=== PATIENT | male | born 1990 | race Caucasian/White ===

== ENCOUNTER 2018-01-17 07:49 | Emergency (ER) | payer SELFPAY ==
[2018-01-17 07:56] VITALS: BP 127/81; PULSE 92; RESP 16; TEMP 37; O2SAT 97
[2018-01-17] MEDS: Lidocaine/Epinephri/Tetracaine Topical Gel 3 ML TP (08:20)
--- NOTE | 2018-01-17 08:20 | ED.GENADUL_ITS ---
Discharge Plan Disposition Patient Disposition: HOME Discharge Details Chief Complaint: Cellulitis Clinical Impression: Abscess of forearm, right, Cellulitis of forearm, right Primary Care Provider: None,None ED Provider: Austin Self Home Meds and New Rx's Prescriptions: New cephalexin [Keflex] 500 mg capsule 500 mg PO QID Qty: 39 RF: 0 sulfamethoxazole-trimethoprim [Bactrim DS] 800-160 mg tablet 1 tab PO Q12H Qty: 19 RF: 0 Discontinued ibuprofen 200 MG capsule 1,200 mg PO ONCE RF: 0 Discharge Instructions Instructions: Cellulitis (ED), Abscess (ED) Additional Instructions: Please take the full course of both antibiotics as prescribed. Return to the emergency department on 01/19 or Saturday 01/20 for reassessment. Return to the ER for any worsening or new concerning symptoms. Medical Decision Making 27-year-old male with history of prior abscess here with right forearm abscess and cellulitis with localized swelling. Neurovascular intact distally. Compartments soft and no signs of compartment syndrome. Abscess anesthetized with LET and incision and drainage performed. Abscess irrigated with sterile saline. Wound cultures taken. Plan to treat with Bactrim and Keflex for 10 days. Patient does not have a primary care physician. I advised that he return to the emergency department for reassessment in 2-3 days. Disposition decision was made weighing the risks and benefits of hospitalization versus outpatient treatment, the risk for further decompensation , and the patient's wishes. The patient was stable and requested discharge. Prior to discharge, my usual and customary return precautions were reviewed with the patient - this included follow-up instructions and reason to return to the emergency department if condition worsens, does not improve as expected, or other new concerns arise. HPI General Mode of arrival: ambulatory . Date/Time Provider Initiated Documentation: 01/17/18 08:18 . Limitations to Documentation: no limitations . Information obtained by: patient . HPI Narrative: 27-year-old male presents with chief complaint of infection right forearm. Patient notes that he noticed what he thought was a pimple right forearm that started 3-4 days ago. Area has become more swollen and painful. Swelling is now extending proximally from the area of infection. He also noticed some redness medial forearm. No associated fever. His symptoms are progressive and now moderate to severe. He notes no pain when he flexes or extends his wrist or elbow. No numbness. Patient denies IVDU or injection. He has had an abscess of his other forearm in the remote past. Related Data Home Medications Medication Instructions Recorded Confirmed cephalexin [Keflex] 500 mg PO QID #39 cap 01/17/18 sulfamethoxazole-trimethoprim 1 tab PO Q12H #19 tab 01/17/18 [Bactrim DS] Previous Rx's Medication Instructions Recorded cephalexin [Keflex] 500 mg PO QID #39 cap 01/17/18 sulfamethoxazole-trimethoprim 1 tab PO Q12H #19 tab 01/17/18 [Bactrim DS] Allergies Allergy/AdvReac Type Severity Reaction Status Date / Time nickel Allergy Mild Skin Rash Unverified 01/17/18 08:00 General Stated Complaint: Cellulitis JOSE: 4 Review of Systems ENT Reports nasal congestion Respiratory Reports cough (1 week nonprod) Musculoskeletal Reports as per HPI Integumentary/Breasts Reports as per HPI PFS Social History Smoking/Tobacco Use Status: Current every day Exam Const General: cooperative and no acute distress [facility] Head: normocephalic and atraumatic Mouth: moist mucous membranes Eyes Conjunctivae: normal conjunctivae Sclera: normal sclerae Resp Auscultation: clear to auscultation bilaterally, no rales, no rhonchi and no wheezes Cardio Jugular venous pressure: no JVD Rate: regular rate and not tachycardic Rhythm: regular rhythm Pulses: radial pulses present on the right Skin Rashes: rashes noted (3cm abscess rt distal posterior medial forearm with fluctuance and erythema, some tracking anterior forearm) Neuro General: alert, awake, oriented x3 and tone normal Extrem General: no edema Right upper extremity: edema (rt forearm) and elbow/forearm Details: tenderness (about abscess ), normal ROM, distal pulses intact and other (compartment soft) Psych Appearance: grossly normal Mental Status: mental status grossly normal Speech and Movement: speech and movement normal Course Vital Signs Temperature 37 C 01/17/18 07:56 Pulse 92 H 01/17/18 07:56 Respiratory Rate 16 01/17/18 07:56 Blood Pressure 127/81 01/17/18 07:56 Pulse Oximetry 97 01/17/18 07:56 Temperature 37 C 01/17/18 07:56 Temperature Source Skin 01/17/18 07:56 Pulse 92 H 01/17/18 07:56 Respiratory Rate 16 01/17/18 07:56 Respiratory Effort Non-Labored 01/17/18 07:56 Blood Pressure 127/81 01/17/18 07:56 Blood Pressure Position Sitting 01/17/18 07:56 Pulse Oximetry 97 01/17/18 07:56 Oxygen Delivery Method Room Air 01/17/18 07:56 Oxygen Flow Rate 0 01/17/18 07:56 Pain Level 8 01/17/18 07:56 Procedures Abscess I/D Site: Upper Extremity (rt forearm) Side (if applicable): Right Local Anesthetic: Other Anesthetic (LET topical) Technique: Incised with #11 Blade Amount of fluid expressed (mL): 6 Irrigation: Yes Packing used?: None Complications: Other (none)
[2018-01-17] MEDS: Doxycycline Hyclate 100 MG CAP PO (08:25)
[2018-01-17] MEDS: Sulfameth/Trimeth DS TAB 1 TAB PO (08:26)
[2018-01-17] MEDS: Cephalexin 500 MG CAP PO (09:20)
== END 2018-01-17 09:29 | disposition home or self-care (01) ==
LOC: ER 09:38
PROVIDERS: Emergency Provider Student in an Organized Health Care Education/Training Program
DX: L02.413 Cutaneous abscess of right upper limb (principal); L03.113 Cellulitis of right upper limb; B95.62 Methicillin resistant Staphylococcus aureus infection as the cause of diseases classified elsewhere
CPT/HCPCS: 10060; 87077; 87070; 87186; 87205

== ENCOUNTER 2018-05-31 16:32 | Emergency (ER) | payer SELFPAY ==
[2018-05-31 16:36] VITALS: BP 143/76; PULSE 77; RESP 20; TEMP 36.5; O2SAT 99
--- NOTE | 2018-05-31 17:12 | W.ED.GENAD ---
Discharge Plan Disposition Patient Disposition: HOME Condition: Good Discharge Details Chief Complaint: Laceration Clinical Impression: Laceration of finger of left hand Primary Care Provider: None,None ED Provider: Mathew Roman Home Meds and New Rx's Prescriptions: No Action No Known Home Meds RF: 0 Discharge Instructions Instructions: Finger Laceration (ED) Additional Instructions: Keep wound clean and dry but do not soak the wound. Keep covered with antibiotic ointment and Band-Aid. Return here in 10 days for suture removal. Return sooner if signs of infection Referrals: [facility] [Provider Group] Medical Decision Making Relatively small and superficial laceration to the left middle finger. Neurovascularly intact and tendons intact. Local anesthetic used. Placed with good approximation of skin. Patient to return in 10 days for suture removal. Return sooner for signs of infection. HPI General Mode of arrival: ambulatory. Date/Time Provider Initiated Documentation: 05/31/18 16:42. Limitations to Documentation: no limitations. Information obtained by: patient. HPI Narrative: Patient presents with laceration to the back of the left middle finger which occurred while he was washing dishes and a glass broke. He denies any other injury. He denies any change in range of motion of the finger or hand. He denies any numbness. Bleeding is controlled. Tetanus is up-to-date. Related Data Home Medications Medication Instructions Recorded Confirmed Unknown [No Known Home Meds] 05/31/18 05/31/18 Allergies Allergy/AdvReac Type Severity Reaction Status Date / Time nickel Allergy Mild Skin Rash Unverified 05/31/18 16:39 General Stated Complaint: Laceration JOSE: 3 Review of Systems Constitutional Denies weakness Musculoskeletal Denies joint swelling, Denies limited range of motion and Denies tingling Integumentary/Breasts Reports wounds Neurologic Denies focal weakness, Denies sensory deficit, Denies tingling, Denies paresthesias and Denies weakness [facility] Social History Smoking/Tobacco Use Status: Current every day Tobacco Type: e-cigarettes Alcohol Intake: current Alcohol Intake frequency: a few times a week Drug use: Daily Substance use type: marijuana Do you feel safe at home: Yes Do you feel safe in your relationship?: Yes Exam Narrative Exam Narrative: Well-developed well-nourished male in no acute distress. Left middle finger with a 0.5 cm lac to the dorsum of the finger at the base. Lac is through the dermis. Tendon is intact. There is no weakness to the extensor tendon mechanism. Sensory is intact distal. Cap refill is normal. Course Vital Signs Temperature 97.7 F 05/31/18 16:36 Pulse 77 05/31/18 16:36 Respiratory Rate 20 05/31/18 16:36 Blood Pressure 143/76 H 05/31/18 16:36 Pulse Oximetry 99 05/31/18 16:36 Temperature 97.7 F 05/31/18 16:36 Temperature Source Temporal Artery Scan 05/31/18 16:36 Pulse 77 05/31/18 16:36 Respiratory Rate 20 05/31/18 16:36 Respiratory Effort Non-Labored 05/31/18 16:36 Blood Pressure 143/76 H 05/31/18 16:36 Pulse Oximetry 99 05/31/18 16:36 Oxygen Delivery Method Room Air 05/31/18 16:36 Oxygen Flow Rate 0 05/31/18 16:36 Pain Level 0 05/31/18 16:36 Procedures Laceration Laceration 1: Site: hand Side (If applicable): left Size (cm): 0.5 Description: linear Depth: simple, single layer Local Anesthetic: Lidocaine 1% Pre-repair: wound explored, irrigated extensively and deep structures intact Skin layer closed with: other (Prolene) Size (cm): 5-0 Number of sutures: 2 Technique: simple, interrupted
--- NOTE | 2018-05-31 17:17 | ED.GENADUL_ITS ---
Discharge Plan Disposition Patient Disposition: HOME Condition: Good Discharge Details Chief Complaint: Laceration Clinical Impression: Laceration of finger of left hand Primary Care Provider: None,None ED Provider: Mathew Roman Home Meds and New Rx's Prescriptions: No Action No Known Home Meds RF: 0 Discharge Instructions Instructions: Finger Laceration (ED) Additional Instructions: Keep wound clean and dry but do not soak the wound. Keep covered with antibiotic ointment and Band-Aid. Return here in 10 days for suture removal. Return sooner if signs of infection Referrals: [facility] [Provider Group] Medical Decision Making Relatively small and superficial laceration to the left middle finger. Neurovascularly intact and tendons intact. Local anesthetic used. Placed with good approximation of skin. Patient to return in 10 days for suture removal. Return sooner for signs of infection. HPI General Mode of arrival: ambulatory . Date/Time Provider Initiated Documentation: 05/31/18 16:42 . Limitations to Documentation: no limitations . Information obtained by: patient . HPI Narrative: Patient presents with laceration to the back of the left middle finger which occurred while he was washing dishes and a glass broke. He denies any other injury. He denies any change in range of motion of the finger or hand. He denies any numbness. Bleeding is controlled. Tetanus is up-to-date. Related Data Home Medications Medication Instructions Recorded Confirmed Unknown [No Known Home Meds] 05/31/18 05/31/18 Allergies Allergy/AdvReac Type Severity Reaction Status Date / Time nickel Allergy Mild Skin Rash Unverified 05/31/18 16:39 General Stated Complaint: Laceration JOSE: 3 Review of Systems Constitutional Denies weakness Musculoskeletal Denies joint swelling, Denies limited range of motion and Denies tingling Integumentary/Breasts Reports wounds Neurologic Denies focal weakness, Denies sensory deficit, Denies tingling, Denies paresthesias and Denies weakness [facility] Social History Smoking/Tobacco Use Status: Current every day Tobacco Type: e-cigarettes Alcohol Intake: current Alcohol Intake frequency: a few times a week Drug use: Daily Substance use type: marijuana Do you feel safe at home: Yes Do you feel safe in your relationship?: Yes Exam Narrative Exam Narrative: Well-developed well-nourished male in no acute distress. Left middle finger with a 0.5 cm lac to the dorsum of the finger at the base. Lac is through the dermis. Tendon is intact. There is no weakness to the extensor tendon mechanism. Sensory is intact distal. Cap refill is normal. Course Vital Signs Temperature 97.7 F 05/31/18 16:36 Pulse 77 05/31/18 16:36 Respiratory Rate 20 05/31/18 16:36 Blood Pressure 143/76 H 05/31/18 16:36 Pulse Oximetry 99 05/31/18 16:36 Temperature 97.7 F 05/31/18 16:36 Temperature Source Temporal Artery Scan 05/31/18 16:36 Pulse 77 05/31/18 16:36 Respiratory Rate 20 05/31/18 16:36 Respiratory Effort Non-Labored 05/31/18 16:36 Blood Pressure 143/76 H 05/31/18 16:36 Pulse Oximetry 99 05/31/18 16:36 Oxygen Delivery Method Room Air 05/31/18 16:36 Oxygen Flow Rate 0 05/31/18 16:36 Pain Level 0 05/31/18 16:36 Procedures Laceration Laceration 1: Site: hand Side (If applicable): left Size (cm): 0.5 Description: linear Depth: simple, single layer Local Anesthetic: Lidocaine 1% Pre-repair: wound explored, irrigated extensively and deep structures intact Skin layer closed with: other (Prolene) Size (cm): 5-0 Number of sutures: 2 Technique: simple, interrupted
== END 2018-05-31 17:10 | disposition home or self-care (01) ==
PROVIDERS: Emergency Provider Emergency Medicine
DX: S61.213A Laceration without foreign body of left middle finger without damage to nail, initial encounter (principal); W25.XXXA Contact with sharp glass, initial encounter
CPT/HCPCS: 12001

== ENCOUNTER 2018-06-03 01:46 | Emergency (ER) | payer SELFPAY ==
[2018-06-03 01:47] VITALS: BP 148/85; PULSE 114; RESP 16; TEMP 37.2; O2SAT 98
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
[2018-06-03 02:03] VITALS: BP 148/85; PULSE 114; RESP 16; TEMP 37.2; O2SAT 98
== END 2018-06-03 02:03 | disposition home or self-care (01) ==
LOC: ER 02:10
PROVIDERS: Emergency Provider Emergency Medicine
DX: S01.01XA Laceration without foreign body of scalp, initial encounter (principal); S00.83XA Contusion of other part of head, initial encounter; S00.03XA Contusion of scalp, initial encounter; S10.83XA Contusion of other specified part of neck, initial encounter; X99.0XXA Assault by sharp glass, initial encounter; Y04.0XXA Assault by unarmed brawl or fight, initial encounter
CPT/HCPCS: 12001; 99282

== ENCOUNTER 2018-06-09 14:53 | Emergency (ER) | payer SELFPAY ==
[2018-06-09 14:56] VITALS: BP 132/68; PULSE 16; TEMP 37; O2SAT 98
--- NOTE | 2018-06-09 15:02 | W.ED.GENAD ---
Discharge Plan Disposition Patient Disposition: HOME Condition: Stable Discharge Details Chief Complaint: SutureRem Clinical Impression: Visit for suture removal Primary Care Provider: None,None ED Provider: Jey Green Home Meds and New Rx's Prescriptions: No Action No Known Home Meds RF: 0 Discharge Instructions Instructions: Stitches Removal (ED) Medical Decision Making Patient here to have his 2 eros removed from scalp and 2 stitches removed from left middle finger placed a week or so ago per pt. Has no redness, signiicant pain or d/c from the wound to suggest infection. wounds appear well healed, will have nursing remove eros and sutures Differential Diagnosis suture and staple removal HPI General Mode of arrival: ambulatory. Date/Time Provider Initiated Documentation: 06/09/18 15:02. Limitations to Documentation: no limitations. Information obtained by: patient. History of Present Illness 27 year old M presents to the emergency department with the chief complaint of suture and staple removal, described as mild, and is localized to the head, left and upper extremity. Patient reports no radiation. No relieving factors improve symptom(s), No exacerbating factors reported . Patient did receive the following treatments prior to arrival, none Related Data Home Medications Medication Instructions Recorded Confirmed Unknown [No Known Home Meds] 05/31/18 06/03/18 Allergies Allergy/AdvReac Type Severity Reaction Status Date / Time nickel Allergy Mild Skin Rash Unverified 06/03/18 01:53 General Stated Complaint: SutureRem JOSE: 5 Review of Systems Review of Systems All systems reviewed & are unremarkable except as noted in HPI and below Constitutional Denies chills, Denies fever(s) and Denies weakness Eyes Denies loss of vision ENT Denies change in voice Cardiovascular Denies chest pain and Denies dyspnea Respiratory Denies cough and Denies dyspnea Gastrointestinal Denies abdominal pain, Denies nausea and Denies vomiting Musculoskeletal Denies joint swelling Neurologic Denies loss of vision and Denies weakness [facility] Social History Smoking/Tobacco Use Status: Current every day Tobacco Type: e-cigarettes Alcohol Intake: current Alcohol Intake frequency: a few times a week Drug use: Daily Substance use type: marijuana Details: drink on the weekends and smoke a pack a week but uses vapor device as well. Do you feel safe at home: Yes Do you feel safe in your relationship?: Yes Exam Const General: no acute distress Orientation: alert HENMT Head: normal to inspection Ears: external ears normal General nose exam: external nose normal Mouth: moist mucous membranes Eyes General: appearance normal, both eyes and all related structures Neck Neck: normal visual inspection Resp Effort & Inspection: normal respiratory effort and able to speak in complete sentences Cardio Rate: regular rate Skin General skin exam: elasticity normal Neuro General: alert and oriented x3 Extrem General: normal to inspection Psych Mental Status: mental status grossly normal Course Vital Signs Temperature 37.0 C 06/09/18 14:56 Pulse 16 L 06/09/18 14:56 Blood Pressure 132/68 06/09/18 14:56 Pulse Oximetry 98 06/09/18 14:56 Temperature 37.0 C 06/09/18 14:56 Temperature Source Tympanic 06/09/18 14:56 Pulse 16 L 06/09/18 14:56 Blood Pressure 132/68 06/09/18 14:56 Blood Pressure Position Sitting 06/09/18 14:56 Pulse Oximetry 98 06/09/18 14:56 Pain Level 0 06/09/18 14:56
[2018-06-09 15:11] VITALS: BP 132/68; PULSE 16; RESP 16; TEMP 37; O2SAT 98
== END 2018-06-09 15:15 | disposition home or self-care (01) ==
LOC: ER 15:16
PROVIDERS: Emergency Provider Emergency Medicine
DX: S01.01XD Laceration without foreign body of scalp, subsequent encounter (principal); S61.213D Laceration without foreign body of left middle finger without damage to nail, subsequent encounter; X58.XXXD Exposure to other specified factors, subsequent encounter; Z48.02 Encounter for removal of sutures

== ENCOUNTER 2018-09-29 13:54 | Emergency (ER) | payer SELFPAY ==
[2018-09-29 13:57] VITALS: BP 164/88; PULSE 103; RESP 16; TEMP 36.6
--- NOTE | 2018-09-29 14:02 | W.ED.GENAD ---
Discharge Plan Disposition Patient Disposition: HOME Condition: Fair Discharge Details Chief Complaint: Laceration Clinical Impression: Fracture of finger, distal phalanx, open, Finger laceration Primary Care Provider: None,None ED Provider: Betty Salmon Home Meds and New Rx's Prescriptions: New cephalexin [Keflex] 500 mg capsule 500 mg PO QID Qty: 20 RF: 0 Discharge Instructions Instructions: Finger Fracture (ED), Finger Laceration (ED) Additional Instructions: Keep wound clean, dry, covered. Please keep current dressing on for the next 24 hours, after that may cover with bandaid and splint. Please continue with splint until evaluated by orthopedics. Call orthopedics to schedule follow up appointment. Sutures may come out in 10 days, please return for suture removal. Tylenol and/or Ibuprofen as needed for discomfort. Elevate. Monitor wound for signs of infection. If you develop fevers/chills, increased pain, discharge, redness, warmth or other new/worsening symptoms please seek care urgently once again. Please take antibiotics as prescribed. 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 Reprots that he was cutting wood with a table saw when he caught the distal radial side of his right index finger. Patient suffered an irrugular flap laceration involving the distal corner of the nail. Has poor sensation to the flap. Good capillary refill. Reports he received tetanus last 2 years ago while incarcerated. Denies other injury at the time of the incident. After evaluating the patient, risks/benefits of digital block was discussed, patient voiced understanding and block was preformed. XR reviewed showing distal tuft defect consistent with area of laceration. Patietn will be treated for open fracture. Discussed risks/benefits of closure, he voices understanding and wishes to proceed. Digital block worked well. Please see procedure note. Wound was copiously irrigated, no FB or debris noted. Tournequet used to hemostasis. Section of nail on the flap was removed for better visualizion and alignment of tissues. Wound edges were reappoximated. He does have a small flap of tissue that is concerning regarding viability, discussed this with patient and possible outcomes with this. Patient tolerated procedure well and a bulky dressing was applied. Discussed wound care in depth. He will monitor for signs of infeciton. He will f/u with orthopedics regarding open fx. Patient placed on Keflex. He was given strict return precautions, will return for suture removal. All of his quiestons and concerns were addressed, he is in agreement with this plan. HPI General Mode of arrival: ambulatory. Date/Time Provider Initiated Documentation: 09/29/18 14:02. Limitations to Documentation: no limitations. Information obtained by: patient and RN notes reviewed. History of Present Illness 28 year old M presents to the emergency department with the chief complaint of right finger laceration, described as severe, Quality is described as burning, and is localized to the right and upper extremity. Patient reports no radiation. Patient started experiencing this minute(s) and it has been constant. No relieving factors improve symptom(s), No exacerbating factors reported . Patient notes no other symptoms.. Patient did receive the following treatments prior to arrival, none Related Data Home Medications Medication Instructions Recorded Confirmed cephalexin [Keflex] 500 mg PO QID #20 cap 09/29/18 Previous Rx's Medication Instructions Recorded cephalexin [Keflex] 500 mg PO QID #20 cap 09/29/18 Allergies Allergy/AdvReac Type Severity Reaction Status Date / Time nickel Allergy Mild Skin Rash Unverified 06/03/18 01:53 General Stated Complaint: Laceration JOSE: 3 Review of Systems Constitutional Reports as per HPI, Denies chills and Denies fever(s) Musculoskeletal Reports as per HPI Integumentary/Breasts Reports as per HPI Neurologic Reports as per HPI and Reports sensory deficit (deficit distal to laceration) [facility] Social History Smoking/Tobacco Use Status: Current every day Tobacco Type: e-cigarettes Alcohol Intake: current Alcohol Intake frequency: a few times a week Drug use: Daily Substance use type: marijuana Details: drink on the weekends and smoke a pack a week but uses vapor device as well. Do you feel safe at home: Yes Do you feel safe in your relationship?: Yes Exam Const General: cooperative, healthy appearing, comfortable, no acute distress and well developed Nutritional Appearance: average body habitus and well nourished Orientation: alert and awake Resp Effort & Inspection: normal respiratory effort, able to speak in complete sentences and no respiratory distress Cardio Rate: regular rate Rhythm: regular rhythm Skin Trauma: laceration (3cm irregular deep laceration radial side right index, involves corner nail) Neuro General: alert and awake Cognition: normal cognition Speech: speech normal Gait: normal gait Sensory Exam: sensory deficits noted (no sensation distal to laceration) Extrem Right upper extremity: full ROM, normal capillary refill, no joint enlargement and hand Details: normal capillary refill and neuromotor exam normal; abnormal to inspection and neurosensory exam abnormal (no sensation in the distal flap); abnormal to inspection (flap laceration as above) and no edema Hand/finger images: 1. 2. Psych Appearance: grossly normal and well kempt Mental Status: mental status grossly normal Speech and Movement: speech and movement normal Course Vital Signs Temperature 36.6 C 09/29/18 13:57 Pulse 103 H 09/29/18 13:57 Respiratory Rate 16 09/29/18 13:57 Blood Pressure 164/88 H 09/29/18 13:57 Temperature 36.6 C 09/29/18 13:57 Temperature Source Temporal Artery Scan 09/29/18 13:57 Pulse 103 H 09/29/18 13:57 Respiratory Rate 16 09/29/18 13:57 Respiratory Effort Non-Labored 09/29/18 13:58 Blood Pressure 164/88 H 09/29/18 13:57 Blood Pressure Position Supine 09/29/18 13:57 Oxygen Delivery Method Room Air 09/29/18 13:57 Oxygen Flow Rate 0 09/29/18 13:57 Pain Level 8 09/29/18 13:58 Procedures Laceration Laceration 1: Site: hand Side (If applicable): right Size (cm): 3 Depth: involves muscle layer (into distal phalanx) Local Anesthetic: Lidocaine 1% Amount of anesthesia used (mL): 5 Pre-repair: wound explored, irrigated extensively, extensive debridement and wound margins revised Skin layer closed with: nylon Size (cm): 6-0 Number of sutures: 11
--- NOTE | 2018-09-29 14:10 | DI.RAD_ITS ---
SYMPTOMS/DIAGNOSIS: TABLE SAW INJURY, DISTAL PHALANX RIGHT INDEX FINGER: Three views were obtained and show soft tissue defect at the tip of the index finger with associated fracture/bone loss of the tuft of the distal phalanx. No additional fractures seen.
[2018-09-29] MEDS: Ibuprofen 600 MG TAB PO (14:20)
[2018-09-29] MEDS: Acetaminophen 500 MG TAB (14:55)
[2018-09-29] MEDS: Cephalexin 500 MG CAP PO (14:55)
[2018-09-29 15:13] VITALS: BP 132/80; PULSE 79; RESP 16; TEMP 36.8; O2SAT 98
== END 2018-09-29 15:06 | disposition home or self-care (01) ==
PROVIDERS: Emergency Provider Physician Assistant
DX: S62.630B Displaced fracture of distal phalanx of right index finger, initial encounter for open fracture (principal); W31.2XXA Contact with powered woodworking and forming machines, initial encounter; Y99.0 Civilian activity done for income or pay
CPT/HCPCS: 11730; 12002; 26750; 73140

== ENCOUNTER 2019-09-18 01:48 | Emergency (ER) | payer SELFPAY ==
[2019-09-18 01:51] VITALS: BP 166/98; PULSE 79; RESP 20; TEMP 36.6; O2SAT 100
--- NOTE | 2019-09-18 01:55 | W.ED.GENAD ---
Discharge Plan Disposition Patient Disposition: HOME Condition: Stable Discharge Details Chief Complaint: DentalOral Clinical Impression: Pain, dental Primary Care Provider: None,None ED Provider: Jey Green Home Meds and New Rx's Prescriptions: New amoxicillin-pot clavulanate [Augmentin] 875-125 mg tablet 1 tab PO BID Qty: 14 RF: 0 Continued ibuprofen 200 mg tablet 800 mg PO Q6H PRNRF: 0 Discharge Instructions Instructions: Toothache (ED) Additional Instructions: follow up with a dentist if you develop inability to swallow liquids, fevers or severe worsening pain return to the emergency department you can take 1000mg tylenol every 6 hours and 600mg ibuprofen every 6 hours as needed Medical Decision Making 29 yo male who denies chronic medical problems comes in with left upper dental pain for a day. Denies fevers, dyspnea, or difficulty swallowing. Has numerous dental caries on exam without sweling, no submandibular swelling no trismus, no visible abscess that I can drain, has pain with percussion over left mid molars in upper jaw that are eroded, suspect pulpitis. Will start abx advised f/u with dentist and return precautions given Differential Diagnosis Differential Diagnosis: pulpitis, caries HPI General Mode of arrival: ambulatory. Date/Time Provider Initiated Documentation: 09/18/19 01:49. Limitations to Documentation: no limitations. Information obtained by: patient. History of Present Illness 29 year old M presents to the emergency department with the chief complaint of dental pain, described as moderate, Quality is described as aching, Patient started experiencing this day(s) (1) and it has been constant. No relieving factors improve symptom(s), No exacerbating factors reported . Related Data Home Medications Medication Instructions Recorded Confirmed ibuprofen 200 mg tablet 800 mg PO Q6H PRN tab 10/04/18 09/18/19 amoxicillin-pot clavulanate 1 tab PO BID #14 tab 09/18/19 [Augmentin] Previous Rx's Medication Instructions Recorded amoxicillin-pot clavulanate 1 tab PO BID #14 tab 09/18/19 [Augmentin] Allergies Allergy/AdvReac Type Severity Reaction Status Date / Time nickel Allergy Mild Skin Rash Unverified 09/18/19 01:52 General Stated Complaint: DentalOral JOSE: 4 Review of Systems All systems reviewed & are unremarkable except as noted in HPI and below Constitutional Constitutional: Denies chills, Denies fever(s) and Denies weakness ENT Ears, Nose, Mouth, and Throat: Denies change in voice Cardiovascular Cardiovascular: Denies chest pain and Denies dyspnea Respiratory Respiratory: Denies cough and Denies dyspnea Gastrointestinal Gastrointestinal: Denies abdominal pain, Denies nausea and Denies vomiting Musculoskeletal Musculoskeletal: Denies joint swelling Neurologic Neurologic: Denies weakness [facility] Social History Smoking/Tobacco Use Status: Current every day Tobacco Type: e-cigarettes Alcohol Intake: current Alcohol Intake frequency: a few times a week Drug use: Daily Substance use type: marijuana Details: drink on the weekends and smoke a pack a week but uses vapor device as well. Do you feel safe at home: Yes Do you feel safe in your relationship?: Yes Exam Const General: no acute distress Orientation: alert HENMT Head: normal to inspection Ears: external ears normal General nose exam: external nose normal Mouth: moist mucous membranes Eyes General: appearance normal, both eyes and all related structures Neck Neck: normal visual inspection Resp Effort & Inspection: normal respiratory effort and able to speak in complete sentences Cardio Rate: regular rate Skin General skin exam: no rashes or lesions noted Neuro General: patient alert and patient oriented x3 Extrem General: normal to inspection Psych Mental Status: mental status grossly normal Course Vital Signs Vital signs: Vital Signs Temperature 36.6 C 09/18/19 01:51 Pulse 79 09/18/19 01:51 Respiratory Rate 09/18/19 01:51 Blood Pressure 166/98 H 09/18/19 01:51 Pulse Oximetry 100 09/18/19 01:51 Temperature 36.6 C 09/18/19 01:51 Temperature Source Temporal Artery Scan 09/18/19 01:51 Pulse 79 09/18/19 01:51 Respiratory Rate 20 09/18/19 01:51 Respiratory Effort Non-Labored 09/18/19 01:53 Blood Pressure 166/98 H 09/18/19 01:51 Blood Pressure Position Sitting 09/18/19 01:51 Pulse Oximetry 100 09/18/19 01:51 Oxygen Delivery Method Room Air 09/18/19 01:51 Oxygen Flow Rate 0 09/18/19 01:51 Pain Level 10 09/18/19 01:53
== END 2019-09-18 02:00 | disposition home or self-care (01) ==
PROVIDERS: Emergency Provider Emergency Medicine
DX: R68.84 Jaw pain (principal); F17.210 Nicotine dependence, cigarettes, uncomplicated
CPT/HCPCS: 99283

== ENCOUNTER 2020-03-16 11:09 | Emergency (ER) | payer SELFPAY ==
[2020-03-16 11:12] VITALS: BP 148/78; PULSE 75; RESP 15; TEMP 36.5; O2SAT 97
--- NOTE | 2020-03-16 11:23 | ED.GENADUL_ITS ---
Discharge Plan Disposition Patient Disposition: HOME Condition: Improving Discharge Details Clinical Impression: Odontalgia Primary Care Provider: None,None ED Provider: Pal Pineda Home Meds and New Rx's Prescriptions: New amoxicillin-pot clavulanate 875-125 mg tablet 1 tab PO BID 10 Days Qty: 20 RF: 0 Continued ibuprofen 200 mg tablet 400 mg PO Q6H PRNRF: 0 Discharge Instructions Instructions: Toothache (ED) Additional Instructions: Please use the dental follow-up list to make an appointment for reevaluation in dentistry. You may also consider follow-up at the [facility]. The number is [phone]. Take Augmentin as prescribed. Tylenol and/or ibuprofen as needed for pain. Return for drooling, difficulty swallowing, or any other acute concerns. Medical Decision Making 29-year-old male presents from home with 2 days of recurrent left upper dental pain. Numerous dental caries and partially broken teeth. Consistent with developing odontalgia. No large abscess. Will place him on Augmentin, for dental wax for comfort, and he was given referral list for dentistry follow-up. He is stable and appropriate for discharge. HPI General Mode of arrival: ambulatory . Date/Time Provider Initiated Documentation: 03/16/20 11:14 . Limitations to Documentation: no limitations . Information obtained by: patient . History of Present Illness 29 year old M presents to the emergency department with the chief complaint of Left tooth pain, described as moderate and similar to prior episodes, Quality is described as dull and constant, and is localized to the face, mouth and left. Patient reports no radiation. Patient started experiencing this hour(s) and it has been constant. No relieving factors improve symptom(s), No exacerbating factors reported . Patient notes denies fever/chills, headaches, loss of appetite and nausea/vomiting. Patient did receive the following treatments prior to arrival, none Related Data Home Medications Medication Instructions Recorded Confirmed ibuprofen 200 mg tablet 400 mg PO Q6H PRN tab 10/04/18 03/16/20 amoxicillin-pot clavulanate 1 tab PO BID 10 Days #20 tab 03/16/20 Previous Rx's Medication Instructions Recorded amoxicillin-pot clavulanate 1 tab PO BID 10 Days #20 tab 03/16/20 Allergies Allergy/AdvReac Type Severity Reaction Status Date / Time nickel Allergy Mild Skin Rash Unverified 03/16/20 11:16 General Stated Complaint: DentalOral JOSE: 4 Review of Systems Narrative: No change to voice or drooling. He has otherwise been well. 6 systems reviewed and negative [facility] Social History Smoking/Tobacco Use Status: Current every day Tobacco Type: e-cigarettes Smoking risk assessment performed?: Yes Alcohol Intake: current Alcohol Intake frequency: a few times a month Drug use: Daily Substance use type: marijuana Details: drink on the weekends and smoke a pack a week but uses vapor device as well. Do you feel safe at home: Yes Do you feel safe in your relationship?: Yes Exam Narrative Exam Narrative: GEN: awake, alert, oriented 3. Pleasant, well groomed, interactive. HEAD: Normocephalic, atraumatic ENT: Mucous membranes moist, oropharynx numerous dental caries and partially broken teeth. Tender left premolar remnants approximately tooth #14 and 15, no significant buccal or lingual swelling. External ear exam unremarkable EYES: PERRL, EOMI NECK: Full ROM, no LALY, no menigismus CHEST/RESP: Nontender, clear to auscultation bilateral, no wheeze/rhonchi/rales CARDIOVASCULAR: RRR, no murmur, rub blessing. 2+ Rad pulse bilateral Neuro: Grossly normal neurologic exam, conversant, interactive. Psych: Speech fluent, thoughts congruent, affect normal Course Vital Signs Vital signs: Vital Signs Temperature 36.5 C 03/16/20 11:12 Pulse 75 03/16/20 11:12 Respiratory Rate 15 03/16/20 11:12 Blood Pressure 148/78 H 03/16/20 11:12 Pulse Oximetry 97 03/16/20 11:12 Temperature 36.5 C 03/16/20 11:12 Temperature Source Temporal Artery Scan 03/16/20 11:12 Pulse 75 03/16/20 11:12 Respiratory Rate 15 03/16/20 11:12 Respiratory Effort Non-Labored 03/16/20 11:15 Blood Pressure 148/78 H 03/16/20 11:12 Blood Pressure Position Sitting 03/16/20 11:12 Pulse Oximetry 97 03/16/20 11:12 Oxygen Delivery Method Room Air 03/16/20 11:12 Oxygen Flow Rate 0 03/16/20 11:12 Pain Level 1 03/16/20 11:12
[2020-03-16] MEDS: Amoxicillin 875/Clav. 125 TAB PO (11:30)
== END 2020-03-16 11:41 | disposition home or self-care (01) ==
PROVIDERS: Emergency Provider Emergency Medicine
DX: R68.84 Jaw pain (principal); R22.0 Localized swelling, mass and lump, head
CPT/HCPCS: 99283

== ENCOUNTER 2020-05-27 16:08 | Emergency (ER) | payer SELFPAY ==
[2020-05-27 16:19] VITALS: BP 154/57; PULSE 98; RESP 20; TEMP 36.5; O2SAT 98
--- NOTE | 2020-05-27 16:30 | DI.RAD_ITS ---
EXAM: XR KNEE LT 3V AP,LAT,LÓPEZ CLINICAL HISTORY: left knee pain, medial aspect. TECHNIQUE: 2D digital imaging was performed. COMPARISON: No exams were available for comparison FINDINGS: BONES: No acute fracture is present. No bony destructive lesion is seen. JOINTS: The knee is normally aligned. No joint effusion is seen. SOFT TISSUE: Normal. IMPRESSION: Normal radiographs of the left knee. DATA REPOSITORY: RADIATION DOSE DELIVERED:
--- NOTE | 2020-05-27 17:03 | DI.VRAD_ITS ---
PROCEDURE INFORMATION: Exam: XR Left Knee Exam date and time: 05/27/2020 4:56 PM Age: 29 years old Clinical indication: Other: Left knee pain, medial aspect TECHNIQUE: Imaging protocol: XR Left knee. Views: 3 views. COMPARISON: No relevant prior studies available. FINDINGS: Bones/joints: Normal. Soft tissues: Normal. IMPRESSION: No acute findings. Dictated and Authenticated by: Levi Quiroz MD. Ordering:YUNIEL Kelly MD
--- NOTE | 2020-05-27 17:10 | W.ED.GENAD ---
Discharge Plan Disposition Patient Disposition: HOME Condition: Good Discharge Details Clinical Impression: Acute pain of left knee Primary Care Provider: None,None ED Provider: Robin Rubio Home Meds and New Rx's Prescriptions: Continued ibuprofen 200 mg tablet 400 mg PO Q6H PRNRF: 0 Discharge Instructions Instructions: Knee Pain (ED) Additional Instructions: At this time the x-ray shows no evidence of fracture. I suspect you have an injury to your medial meniscus. Please use the brace and crutches for the next week. The longer you stay off of it to allow it to heal the better. You should have improvement of your pain, however if you do not after a week or so, you may require reassessment and follow-up with an supply chain specialist. Please take ibuprofen and Tylenol as needed for pain. Ice your knee as often as possible. If you notice any worsening of your symptoms, or any new symptoms such as vomiting, diarrhea, fever, chills, shortness of breath, chest pain, numbness, weakness, or fainting , please return immediately to the emergency department for reevaluation. Please follow up with your primary care provider as soon as possible for reassessment and reevaluation. As always, it was a pleasure participating in your medical care today. Discharge Data Discharge Date/Time-TO BE ENTERED AT DEPARTURE: 05/27/20 17:51 Medical Decision Making 29-year-old male presents today for evaluation of left knee pain. 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 He is uncertain if he heard a pop. Pain seems to be present when bearing weight. There was no fall or trauma. Pain is located at the medial aspect of his left knee. No pain when he is resting. No calf tenderness. No weakness. No numbness or tingling. No previous injury to that area. No other complaints at this time. Exam demonstrates no evidence of significant swelling or edema. No significant focal tenderness or laxity aside for minimal laxity with anterior drawer test. Patient does have notable pain though with Laina's test at the medial aspect of his knee which is location of pain in general. Suspect mild meniscal injury. Is otherwise stable. X-ray is read as negative by virtual radiology. Suspect sprain and mild meniscal injury. Will give knee brace and crutches from use. Recommend Tylenol Motrin and ice. Discussed red flags which to return, including that if his symptoms do not improve he may need further orthopedic follow-up. I have extensively reviewed the treatment plan and discharge instructions with the patient. I have addressed all patient concerns at this time. The patient was made aware of what symptoms to monitor for that would warrant a return to the emergency department. Discussed the plan with the patient, they demonstrate verbal understanding and agreement with our assessment and plan at this time. The documentation in this chart was dictated using [employer] dictation software. Please excuse any dictation errors. FINDINGS: Bones/joints: Normal. Soft tissues: Normal. IMPRESSION: No acute findings. Thank you for allowing us to participate in the care of your patient. Dictated and Authenticated by: Levi Quiroz MD 05/27/2020 5:03 PM Eastern Time ([place] & [place]) HPI General Date/Time Provider Initiated Documentation: 05/27/20 16:31. HPI Narrative: 29-year-old male presents today for evaluation of left knee pain. 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 He is uncertain if he heard a pop. Pain seems to be present when bearing weight. There was no fall or trauma. Pain is located at the medial aspect of his left knee. No pain when he is resting. No calf tenderness. No weakness. No numbness or tingling. No previous injury to that area. No other complaints at this time. Related Data Home Medications Medication Instructions Recorded Confirmed ibuprofen 200 mg tablet 400 mg PO Q6H PRN tab 10/04/18 05/27/20 Allergies Allergy/AdvReac Type Severity Reaction Status Date / Time nickel Allergy Mild Skin Rash Unverified 05/27/20 16:24 General Stated Complaint: Orthopedic JOSE: 4 Review of Systems All systems reviewed & are unremarkable except as noted in HPI and below PFSH Social History Smoking/Tobacco Use Status: Current every day Tobacco Type: e-cigarettes Smoking risk assessment performed?: Yes Alcohol Intake: current Alcohol Intake frequency: a few times a month Drug use: Daily Substance use type: marijuana Details: drink on the weekends and smoke a pack a week but uses vapor device as well. Do you feel safe at home: Yes Do you feel safe in your relationship?: Yes Exam Narrative Exam Narrative: 1.Const: Well-nourished, Well-developed, appearing stated age 2.Eyes: PERRL, no conjunctival injection, and symmetrical lids. 3.ENT: Atraumatic external nose and ears. Moist MM. Neck: Symmetric, trachea midline, No thyromegaly. 4.CVS: +S1/S2, No murmurs or gallops. Peripheral pulses 2+ and equal in all extremities. Brisk capillary refill in all extremities. 5.RESP: Unlabored respiratory effort. Clear to auscultation bilaterally. No wheezes rales or rhonchi 6.GI: Soft, Nontender/Nondistended, No hepatosplenomegaly. No guarding or rebound. 7.MSK: Patient's left knee demonstrates no erythema, no edema and no swelling. Pain seems to be localized over the medial aspect of the left knee. No weakness in all directions of movement. No pain with flexion or extension. No pain with varus or valgus stressing. Mild to moderate pain with Laina's test the medial aspect of the knee. No pain on palpation of the patella. Minimal laxity with anterior drawer test. No laxity with posterior. 8.Skin: Warm, Dry. No rashes or lesions. 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 Sensation grossly intact, no focal neurologic deficits. 10.Psych: (AAO) x3. Appropriate mood and affect Course Vital Signs Vital signs: Vital Signs Temperature 36.5 C 05/27/20 16:19 Pulse 98 H 05/27/20 16:19 Respiratory Rate 20 05/27/20 16:19 Blood Pressure 154/57 H 05/27/20 16:19 Pulse Oximetry 98 05/27/20 16:19 Temperature 36.5 C 05/27/20 16:19 Temperature Source Oral 05/27/20 16:19 Pulse 98 H 05/27/20 16:19 Respiratory Rate 20 05/27/20 16:19 Respiratory Effort Non-Labored 05/27/20 16:24 Blood Pressure 154/57 H 05/27/20 16:19 Pulse Oximetry 98 05/27/20 16:19 Oxygen Delivery Method Room Air 05/27/20 16:19 Oxygen Flow Rate 0 05/27/20 16:19 Pain Level 0 05/27/20 16:21 Comment 05/27/20 16:21
[2020-05-27 17:44] VITALS: BP 154/57; PULSE 98; RESP 20; TEMP 36.5; O2SAT 98
== END 2020-05-27 17:51 | disposition home or self-care (01) ==
PROVIDERS: Emergency Provider Student in an Organized Health Care Education/Training Program
DX: M25.562 Pain in left knee (principal)
CPT/HCPCS: 29505; 73562; 99283

== ENCOUNTER 2020-07-04 04:31 | Outpatient (CLI) | payer OTHER, SELFPAY ==
--- NOTE | 2020-07-04 06:30 | DI.MRI_ITS ---
Exam(s) MR LOWER JOINT LT WO EXAM: MR LOWER JOINT LT WO CLINICAL HISTORY: LT KNEE PAIN, INTERNAL DERANGEMENT, M23.92. TECHNIQUE: Multiplanar multisequence MRI was performed. COMPARISON: CR,XR XR KNEE LT 3V AP,LAT,LÓPEZ from 05/27/2020 CR,XR XR KNEE LT 3V AP,LAT,LÓPEZ from 05/27/2020 FINDINGS: Moderate to large joint effusion. Small Huggins's cyst. ACL: Some edema. No full-thickness tear. PCL: Intact. Medial collateral ligament: Mild edema surrounding the of femoral attachment question mild sprain. Lateral collateral ligament complex: Intact. Medial meniscus: Horizontally oriented tear of the posterior horn. Bucket-handle type tear with flip ped fragment centrally near the tibial spines. Lateral meniscus: Intact. Marrow: Mild contusions of the medial femoral condyle and medial tibial plateau. Cartilage: No focal defects. IMPRESSION: Bucket-handle type tear of the medial meniscus. ACL and MCL sprains. Mild contusions of the medial femoral condyle and medial tibial plateau. DATA REPOSITORY:
== END 2020-07-04 04:51 ==
PROVIDERS: Visit Provider Student in an Organized Health Care Education/Training Program
DX: S83.212A Bucket-handle tear of medial meniscus, current injury, left knee, initial encounter (principal); M23.92 Unspecified internal derangement of left knee
CPT/HCPCS: 73721

== ENCOUNTER 2020-07-22 02:59 | Outpatient (CLI) | payer SELFPAY ==
[2020-07-25 07:45] LABS: Anabasine <2.0 ng/mL (<2.0); Cotinine 705 ng/mL (<5.0); Nicotine 35 ng/mL (<5.0); Nornicotine 5.1 ng/mL (<2.0)
== END 2020-07-22 03:00 | disposition home or self-care (01) ==
LOC: LBO 03:00
PROVIDERS: Visit Provider Student in an Organized Health Care Education/Training Program
DX: Z72.0 Tobacco use (principal); Z01.818 Encounter for other preprocedural examination; S83.212A Bucket-handle tear of medial meniscus, current injury, left knee, initial encounter; S83.512A Sprain of anterior cruciate ligament of left knee, initial encounter
CPT/HCPCS: 36415; 80323

== ENCOUNTER 2020-07-23 02:56 | Outpatient (CLI) | payer OTHER, SELFPAY ==
[2020-07-23 11:26] LABS: Source Nasal/Nares
[2020-07-23 15:18] LABS: COVID-19 PCR Negative (Negative)
== END 2020-07-23 02:57 | disposition home or self-care (01) ==
LOC: LBO 02:56
PROVIDERS: Visit Provider Student in an Organized Health Care Education/Training Program
DX: Z20.822 Contact with and (suspected) exposure to COVID-19 (principal); Z01.818 Encounter for other preprocedural examination
CPT/HCPCS: 87635

== ENCOUNTER 2020-07-25 07:27 | Day surgery (SDC) | payer OTHER, SELFPAY ==
[2020-07-25] VITALS (12 sets, daily range): BP systolic 129–167; BP diastolic 82–116; PULSE 62–85; RESP 15–21; TEMP 36.5–37.1; O2SAT 43–100; BMI 22.9
--- NOTE | 2020-07-25 07:40 | W.ANESPRE ---
General Info Date of Service Date Performed: 07/25/20 Height: 6 ft 2 in Weight: 81.193 kg Body Mass Index (BMI): 22.9 Surgical Procedure: Operation Date: 07/25/20 09:10 Proposed Procedures Side Surgeon p Knee Arthroscopy with any indicated meniscal(medial meniscus repair vs menisectomy) chondral and synovial surgery Left Miguel Segundo MD Meds Allergies and Home Medications Allergies Allergy/AdvReac Type Severity Reaction Status Date / Time nickel Allergy Mild Skin Rash Verified 07/25/20 08:00 Home Medication Medication Instructions Recorded ibuprofen 200 mg tablet 400 mg PO Q6H PRN tab 10/04/18 Current Visit Medications: Current Medications Generic Name Dose Route Start Last Admin Trade Name Freq PRN Reason Stop Dose Admin Ringer's Solution 1,000 mls @ 100 mls/hr 07/25/20 06:00 IV 08/23/20 23:59 INFUSION TONY Cefazolin Sodium/Dextrose 2 gm in 50 mls @ 100 mls/hr 07/25/20 06:00 Ancef Duplex IVPB 08/23/20 23:59 PREOP TONY IV Miscellaneous Supplies 1 each 07/25/20 06:00 Iv Access IV 08/23/20 23:59 DIRECTED TONY Oxycodone HCl 5 - 10 mg 07/25/20 07:29 Oxycodone 5 Mg Tab PO Q4H PRN PRN Sodium Chloride 0 ml 07/25/20 06:00 Normal Saline Flush 10 Ml Syr IV 08/23/20 23:59 PRN PRN Sodium Chloride 0 ml 07/25/20 06:00 Normal Saline 10 Ml Vial IJ 08/23/20 23:59 DIRECTED PRN Sterile Water 0 ml 07/25/20 06:00 Water,Injection,Sterile 10 Ml Vial IJ 08/23/20 23:59 DIRECTED PRN PFSH Active Problems Active Problems: Problem Status Onset Code Nicotine abuse Z72.0 Acute medial meniscus tear of left knee 05/27/20 S83.242A Left ACL tear 05/27/20 S83.512A Laceration of right index finger 09/29/18 S61.210A Tobacco Smoking/Tobacco Use Status: Current every day Tobacco Type: e-cigarettes Alcohol Alcohol Intake: current Alcohol intake frequency: a few times a month Substance Use Substance use: Daily Substance use type: marijuana Details: drink on the weekends and smoke a pack a week but uses vapor device as well. Vital Signs and Lab Results Lab Results Blood Type / Crossmatch: No Data to Display Complete Blood Count: No Data to Display Complete Metabolic Panel: No Data to Display Liver Function Panel: No Data to Display Coagulation Panel: No Data to Display Cardiac Panel: No Data to Display Arterial Blood Gas: No Data to Display Venous Blood Gas: No Data to Display Pancreas Panel: No Data to Display Thyroid Panel: No Data to Display Infectious Disease: Coronavirus (COVID-19)(PCR) Negative (Negative) 07/23/20 11:03 07/23/20 Coronavirus 2019 Source Nasal/nares 07/23/20 11:03 07/23/20 Blood Cultures: No Data to Display Toxicology Panel: No Data to Display Anesthesia Assessment and Plan Anesthesia History Personal History: Awareness Under Anesthesia and Other (Temporary vocal cord paralysis) Family History: No Family History of Anesthesia Complications Exercise Tolerance Exercise Tolerance: Metabolic Equivalents>4 Pertinent Negatives Pertinent Negatives: No Symptoms of GERD, No Major Cardiovascular Symptoms or Complaints, No Major Pulmonary Symptoms or Complaints and No History of CVA/TIA (TIA 10 years ago) Cardiac & Pulmonary Exam Cardiac Exam: Normal S1/S2 Heart Sounds Pulmonary Exam: Clear Bilateral Breath Sounds Airway Exam Known Difficult Airway: No Mallampati Class: 2 Mouth Opening: Normal (> 3cm) Thyromental Distance: Greater than 3 cm Neck Range of Motion: Full ROM Neck Circumference: Normal Teeth Condition: Normal Dentition Airway Comments: Multiple caps and crowns and 1 implant All 4 Top front teeth capped ASA Classification ASA Score: ASA 2 Emergency Case?: No NPO Status NPO Status: NPO Clears >2 hours, Solids >8 hours Anesthesia Plan Resuscitation Status: Full Code Anesthesia Technique: General Anesthesia Airway Planned: Natural Airway Monitors Used: Standard Monitors Preoperative Comments:: SP right upper lobe
--- NOTE | 2020-07-25 08:18 | W.ANESPRE ---
General Info Date of Service Date Performed: 07/25/20 Height: 6 ft 2 in Weight: 81.193 kg Body Mass Index (BMI): 22.9 Surgical Procedure: Operation Date: 07/25/20 09:10 Proposed Procedures Side Surgeon p Knee Arthroscopy with any indicated meniscal(medial meniscus repair vs menisectomy) chondral and synovial surgery Left Miguel Segundo MD Meds Allergies and Home Medications Allergies Allergy/AdvReac Type Severity Reaction Status Date / Time nickel Allergy Mild Skin Rash Verified 07/25/20 08:00 Home Medication Medication Instructions Recorded ibuprofen 200 mg tablet 400 mg PO Q6H PRN tab 10/04/18 Current Visit Medications: Current Medications Generic Name Dose Route Start Last Admin Trade Name Freq PRN Reason Stop Dose Admin Ringer's Solution 1,000 mls @ 100 mls/hr 07/25/20 06:00 IV 08/23/20 23:59 INFUSION TONY Cefazolin Sodium/Dextrose 2 gm in 50 mls @ 100 mls/hr 07/25/20 06:00 Ancef Duplex IVPB 08/23/20 23:59 PREOP TONY IV Miscellaneous Supplies 1 each 07/25/20 06:00 Iv Access IV 08/23/20 23:59 DIRECTED TONY Oxycodone HCl 5 - 10 mg 07/25/20 07:29 Oxycodone 5 Mg Tab PO Q4H PRN PRN Sodium Chloride 0 ml 07/25/20 06:00 Normal Saline Flush 10 Ml Syr IV 08/23/20 23:59 PRN PRN Sodium Chloride 0 ml 07/25/20 06:00 Normal Saline 10 Ml Vial IJ 08/23/20 23:59 DIRECTED PRN Sterile Water 0 ml 07/25/20 06:00 Water,Injection,Sterile 10 Ml Vial IJ 08/23/20 23:59 DIRECTED PRN PFSH Active Problems Active Problems: Problem Status Onset Code Nicotine abuse Z72.0 Acute medial meniscus tear of left knee 05/27/20 S83.242A Left ACL tear 05/27/20 S83.512A Laceration of right index finger 09/29/18 S61.210A Tobacco Smoking/Tobacco Use Status: Current every day Tobacco Type: e-cigarettes Alcohol Alcohol Intake: current Alcohol intake frequency: a few times a month Substance Use Substance use: Daily Substance use type: marijuana Details: drink on the weekends and smoke a pack a week but uses vapor device as well. Vital Signs and Lab Results Vital Signs Most Recent Vital Signs in EMR: Most Recent Vital Signs Temp Pulse Resp BP Pulse Ox 37.1 C 85 18 129/82 100 07/25/20 07:38 07/25/20 07:38 07/25/20 07:38 07/25/20 07:38 07/25/20 07:38 Lab Results Blood Type / Crossmatch: No Data to Display Complete Blood Count: No Data to Display Complete Metabolic Panel: No Data to Display Liver Function Panel: No Data to Display Coagulation Panel: No Data to Display Cardiac Panel: No Data to Display Arterial Blood Gas: No Data to Display Venous Blood Gas: No Data to Display Pancreas Panel: No Data to Display Thyroid Panel: No Data to Display Infectious Disease: Coronavirus (COVID-19)(PCR) Negative (Negative) 07/23/20 11:03 07/23/20 Coronavirus 2019 Source Nasal/nares 07/23/20 11:03 07/23/20 Blood Cultures: No Data to Display Toxicology Panel: No Data to Display Anesthesia Assessment and Plan Anesthesia History Personal History: No History of Anesthesia Complications Family History: No Family History of Anesthesia Complications Exercise Tolerance Exercise Tolerance: Metabolic Equivalents>4 Pertinent Negatives Pertinent Negatives: No Symptoms of GERD, No Major Cardiovascular Symptoms or Complaints, No Major Pulmonary Symptoms or Complaints and No History of CVA/TIA Cardiac & Pulmonary Exam Cardiac Exam: Normal S1/S2 Heart Sounds Pulmonary Exam: Clear Bilateral Breath Sounds Airway Exam Known Difficult Airway: No Mallampati Class: 2 Mouth Opening: Normal (> 3cm) Thyromental Distance: Greater than 3 cm Neck Range of Motion: Full ROM Neck Circumference: Normal Teeth Condition: Normal Dentition ASA Classification ASA Score: ASA 2 Emergency Case?: No NPO Status NPO Status: NPO Clears >2 hours, Solids >8 hours Anesthesia Plan Resuscitation Status: Full Code Anesthesia Technique: General Anesthesia Airway Planned: Natural Airway Monitors Used: Standard Monitors
[2020-07-25] MEDS: Lactated Ringers 1,000 ML 100 ML IV (08:20)
[2020-07-25] MEDS: ceFAZolin 2 GM/50 ML BAG IVPB (09:32)
[2020-07-25] MEDS: Bupivacaine 0.25% Pres-Free 30 ML VIAL (12:44)
[2020-07-25] MEDS: EPINEPHrine 30 MG/30 ML VIAL (12:45)
--- NOTE | 2020-07-25 13:33 | ROE_ITS ---
Date of service: 07/25/20 Time of Service: 12:00 Operative Note Operative Note DATE OF PROCEDURE: 07/25/20 PRE-OP DIAGNOSIS: Left knee 1. Bucket-handle medial meniscus tear 2. ACL sprain POST-OP DIAGNOSIS: other Left knee 1. Bucket-handle medial meniscus tear 2. Synovitis PROCEDURE: Left knee 1. Medial meniscus repair, CPT #05080: Combination inside?out and outside-in 2. Greater than 2 compartment synovectomy, CPT #96317: Medial, lateral, intercondylar, and patellofemoral 3. Intercondylar notch microfracture, CPT #16559: Marrow stimulation technique for meniscus repair without cruciate ligament surgery SURGEON: Miguel Segundo EMERGENCY DEPARTMENT TECHNICIAN: Carmella Barney ANESTHESIA TYPE: Local By Surgeon and General LMA/ETT Refer to Anesthesia Record ESTIMATED BLOOD LOSS: 10 PATHOLOGY: none sent TOURNIQUET TIME: 0 COMPLICATIONS: None Patient was transported to: PACU Patient's condition: stable Implants: 7x mini SutureTape Indications: Please see complete medical record for details. Findings: Exam under anesthesia: Near?full extension. Full flexion. Stable Teresa, anterior drawer, and negative pivot shift. Stable varus valgus stress. Stable posterior drawer. Arthroscopic findings: Significant displaced bucket-handle medial meniscus tear with peripheral remnant and reasonable tissue quality with displaced tissue in the intercondylar notch impinging on the ACL. ACL intact with appropriate tension and no disruption to the femoral or tibial attachment sites. Articular cartilage intact throughout. Significant synovitis patellofemoral, medial, intercondylar, and lateral. Procedure Description: In the operating room, genral anesthesia was induced. The patient was positioned supine on the operating room table. All bony p rominences were well-padded. Preoperative antibiotics were administered. The knee was prepped and draped in the usual sterile fashion. The correct patient, procedure, and side of the procedure were all verified prior to incision. Exam under anesthesia was performed. 10 cc of 0.25% bupivacaine plain was infiltrated about the planned anteromedial and anterolateral knee arthroscopy portals. The portals were established and a complete diagnostic arthroscopy was performed with relevant findings detailed above. The mechanical shaver was used to remove abundant pathologic synovium from the medial, lateral, intercondylar and patellofemoral compartments. Attention was then turned to the displaced medial meniscus tear. A combination of blunt obturators and valgus knee positioning was used to reduce the entirety of this bucket handle medial meniscus tear. Rotation and orientation was optimized using the probe. Given the size of this bucket-handle tear involving the majority of the medial meniscus with exception for the posterior root and far anterior horn, and lack of ACL tear requiring reconstruction, the decision was made to proceed with inside?out repair. 10 cc of 0.5% bupivacaine containing epinephrine was infiltrated about the planned posterior medial longitudinal incision site. Skin was incised a couple centimeters proximal to the joint extending a few centimeters below the joint. Subcutaneous tissues was red bluntly. There were no significant saphenous nerve branches to preserve. Digital and blunt dissection was carried down to the medial capsule and medial head of the gastrocnemius was gently elevated exposing the posterior and posterior medial joint capsule. An inside-out retractor was placed, but was switched to a more appropriately sized speculum half. The arthroscope was inserted back in the knee through the anterior medial portal. The meniscus reduction was confirmed and a half pipe cannula was used to deliver the left sided Arthrex zone navigator device to the meniscus. The junction of the posterior horn and medial meniscus body was chosen for the initial repair stitch, which was delivered in an inside-out fashion with the assistant women's basketball coach retrieving each needle and the stitch passed in a horizontal mattress configuration. The sutures were used to confirm appropriate reduction of meniscus to capsule and without placing undue tension causing meniscal extrusion. An additional horizontal mattress placed more posteriorly in the posterior horn and more anteriorly in the meniscal body in a similar inside-out fashion. The knee was brought near full extension while still maintaining some visualization of the medial compartment and meniscus reduction. Each suture pair was then tied over capsule taking care to apply correct amount of tension. The meniscus was then probed and found to have excellent provisional stability throughout. An additional 3 inside-out repair stitches were placed at the far posterior extension of the tear into the posterior horn adjacent to the routine care to direct these needles away from the central neurovascular structures, between the posterior horn and body junction initial stitch, and between the p osterior horn and already placed body stitch in horizontal and vertical mattress configuration to optimize meniscus reduction. Lastly, the microsuture lasso was used to retrieve another mini suture tape for a most anterior seventh repair stitch in a outside?in fashion on the undersurface of the anterior horn extension of the tear completing stabilization and reduction of the meniscus tear. The knee was taken through range of motion and the meniscus repair was visualized through both the anteromedial anterolateral compartment. A minor amount of posterior horn white zone fraying was minimally trimmed using meniscal biter and smooth to stable contour with the shaver. The entirety of the repair, anterior and posterior horns all remained stable with excellent reduction and fixation. Next, attention was turned to the intercondylar region for planned marrow stimulation technique owing to the significant meniscus repair in order to optimize healing and isolation from any cruciate surgery. A small lateral wall notchplasty was performed to expose subchondral bone anterior to the attachment. The 30 degree microfracture awl was then used to penetrate to bone and a number of locations and appropriate subchondral bleeding bone confirmed with pump insufflation turned off. Under direct arthroscopic visualization an 18-gauge needle was passed into the knee from superolateral into the suprapatellar pouch. The knee was copiously irrigated with arthroscopic fluid until there was a clear effluent before being drained of all fluid. The anteromedial and anterolateral portals were closed in 3-0 Monocryl in a buried interrupted fashion. 20 cc of 0.5% bupivacaine with epinephrine containing 4 mg of morphine was infiltrated into the knee through the previously placed needle. The posterior medial approach subcutaneous tissue was closed using 2-0 Monocryl in a buried interrupted fashion. The skin was closed in 3-0 Monocryl in a running subcuticular fashion. Mastisol, Steri-Strips, and 4 x 4 gauze were applied over the incisions followed by sterile soft roll. The knee was then wrapped gently with an LISA comressive bandage. The patient awoke from anesthesia without complication and was transferred to the recovery room in a stable condition.
--- NOTE | 2020-07-25 13:44 | W.ANESPOSTOP ---
Postoperative Evaluation Date, Time and Location Date Performed: 07/25/20 Time Performed: 13:44 Patient Location: PACU Vital Signs Most Recent Imported Vital Signs: Most Recent Vital Signs Temp Pulse Resp BP Pulse Ox 37 C 77 17 167/111 H 100 07/25/20 13:34 07/25/20 13:34 07/25/20 13:34 07/25/20 13:34 07/25/20 13:34 Pain Score Most Recent Pain Score: Most Recent Pain Score Pain Level 0 07/25/20 07:38 Assessment Mental Status: Awake (Alert & Oriented to Patient Baseline) Airway and Respiratory Function: Patent airway with normal (patient baseline) respiratory exam Cardiovascular Function: Hemodynamically Stable Hydration Status: Adequately Hydrated Nausea & Vomiting: No Nausea or Vomiting Pain: Pt. Denies Any Pain Peripheral Nerve Block: Patient did not receive a nerve block
--- NOTE | 2020-07-25 13:55 | W.PM.DSUDISC ---
Discharge Plan Disposition Patient Disposition: HOME Condition: Stable Discharge Details Reason For Visit: Left knee surgery Attending Provider: Miguel Segundo Primary Care Provider: None,None Home Meds and New Rx's Prescriptions: No Action ibuprofen 200 mg tablet 400 mg PO Q6H PRNRF: 0 Discharge Instructions Additional Instructions: Surgery: Knee arthroscopy with medial meniscus repair, synovectomy, and notch microfracture Activity: Protected weightbearing (less than 50%) with crutches for 6 weeks. Restore full knee extension as soon as possible. No deep knee flexion for 2 months. Avoid squatting, pivoting, and jumping for at least 3 months. Physical therapy will be arranged to begin in about 2-3 weeks. Protocol Protected weightbearing with crutches x6 weeks Non-weight bearing range of motion 0 - 90 degrees x 8 weeks then slowly progress flexion to full No weighted flexion past 90 degrees for 3 months Closed chain strengthening after 3 months Prescriptions: Aspirin 81 mg take 1 daily to prevent a blood clot for 30 days Naproxen 250 mg take 1-2 every 12 hours with a meal as needed for moderate pain Oxycodone 5 mg take 1-2 every 4-6 hours as needed for severe pain You may use [id number] Tylenol (acetaminophen) as needed for mild pain. These pain medications may be taken all at once or in different combinations as needed. Also, recommend Colace (docusate) as a stool softener as surgery and pain medicine cause constipation. Dressings: Leave dressing in place for 2-3 days. May then remove and leave open to air or cover incisions with Band-Aids. May shower after 5 days. Follow-up: 10-[address] Segundo Let us know right away if you develop any redness, drainage, fevers, chest pain, or trouble breathing. Do not drink alcohol or drive for at least 24 hours after anesthesia. Please call the office during business hours with any questions or concerns. Referrals: Miguel Segundo MD [ [facility] STAFF PHYSICIAN] - Discharge Orders Discharge Orders: Discharge Order (Routine); Ordered 07/25/20 Ordered By: Miguel Segundo DS: Diagnosis Discharge Diagnosis (1) Acute medial meniscus tear of left knee: Status: Acute
[2020-07-25] MEDS: oxyCODONE 5 MG TAB PO (14:31)
== END 2020-07-25 16:00 | disposition home or self-care (01) ==
PROVIDERS: Visit Provider Student in an Organized Health Care Education/Training Program
PROC: (CPT 29870; principal; 2020-07-25 09:00)
DX: S83.212A Bucket-handle tear of medial meniscus, current injury, left knee, initial encounter (principal); X50.1XXA Overexertion from prolonged static or awkward postures, initial encounter; S83.512A Sprain of anterior cruciate ligament of left knee, initial encounter
CPT/HCPCS: 29882; 29876; 29879; J0131; J0690; J1100; J1885; J2001; J2405; J2704; J3475

== ENCOUNTER 2021-07-16 20:17 | Emergency (ER) | payer SELFPAY ==
[2021-07-16 20:42] VITALS: BP 169/88; PULSE 67; RESP 13; TEMP 36.8; O2SAT 100
--- NOTE | 2021-07-16 21:20 | ED.GENADUL_ITS ---
Discharge Plan Disposition Patient Disposition: HOME Condition: Stable Discharge Details Clinical Impression: Abscess, dental Primary Care Provider: None,None ED Provider: Henrry Caputo Home Meds and New Rx's Prescriptions: New amoxicillin-pot clavulanate 875-125 mg tablet 1 tab PO Q12H 6 Days Qty: 12 0RF Discharge Instructions Instructions: Dental Abscess (ED) Additional Instructions: He may continue to use [id number] ibuprofen as needed for discomfort. Please monitor your symptoms and return immediately if you have any significant worsening of pain, swelling, difficulty breathing, severe headache, or fever. Otherwise it will be very important to follow-up with a dental provider for more definitive care of your dental infection. Referrals: [facility] [Provider Group] - 1 week Discharge Data Discharge Date/Time-TO BE ENTERED AT DEPARTURE: 07/16/21 21:38 Medical Decision Making Patient presenting to the emergency department for chief complaint of dental pain and swelling. He states that 2 days ago he bought a potato chip that poked near his gumline around some broken teeth. Yesterday he had some discomfort that was mild but then today woke up with normal mild pain that worsened throughout the day with secondary facial swelling. Patient denies fever chills, difficulty breathing or difficulty swallowing. Exam consistent with dental abscess. 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 Pt non toxic and stable. No obvious palpable abscess in which I feel comfortable draining so will place patient on Augmentin with close monitoring of symptoms along with return and follow-up precautions. After discussion of diagnosis and plan of care patient has no further needs, questions, or concerns and states clear understanding to return to the emergency department for any worsening symptoms. HPI General Mode of arrival: ambulatory . Date/Time Provider Initiated Documentation: 07/16/21 21:14 . Limitations to Documentation: no limitations . Information obtained by: patient and RN notes reviewed . History of Present Illness 30 year old M presents to the emergency department with the chief complaint of Dental infection, described as mild, with intensity rated at 2. Quality is described as aching, and is localized to the mouth and left. Patient reports no radiation. Patient started experiencing this day(s) (2) and it has been constant. No relieving factors improve symptom(s), No exacerbating factors reported . Patient notes no other symptoms.. Patient did receive the following treatments prior to arrival, NSAID Related Data Home Medications Medication Instructions Recorded Confirmed amoxicillin 875 mg-potassium 1 tab PO Q12H 6 days #12 tabs 07/16/21 clavulanate 125 mg tablet Previous Rx's Medication Instructions Recorded amoxicillin 875 mg-potassium 1 tab PO Q12H 6 days #12 tabs 07/16/21 clavulanate 125 mg tablet Allergies Allergy/AdvReac Type Severity Reaction Status Date / Time nickel Allergy Mild Skin Rash Verified 07/16/21 20:47 General Stated Complaint: DentalOral JOSE: 4 Review of Systems Constitutional Constitutional: Denies chills and Denies fever(s) ENT Ears, Nose, Mouth, and Throat: Reports as per HPI, Denies change in voice, Reports dental pain, Denies dysphagia, Denies throat swelling and Denies tongue swelling Cardiovascular Cardiovascular: Denies chest pain and Denies dyspnea Respiratory Respiratory: Denies dyspnea, Denies stridor and Denies wheezing Gastrointestinal Gastrointestinal: Denies abdominal pain, Denies dysphagia, Denies nausea and Denies vomiting Integumentary/Breasts Skin/Breast: Denies rash Allergic/Immunologic Allergic/Immunologic: Denies throat swelling, Denies tongue swelling and Denies wheezing PFSH All Active Problems Abscess, dental (Acute) Nicotine abuse (Acute) Acute medial meniscus tear of left knee (Acute 05/27/20) Laceration of right index finger (Acute 09/29/18) Medical History Left ACL tear (05/27/20) Social History Smoking/Tobacco Use Status: Current every day Tobacco Type: e-cigarettes Smoking risk assessment performed?: Yes Alcohol Intake: current Alcohol Intake frequency: holidays/special occasions only Drug use: Daily Substance use type: marijuana Details: drink on the weekends and smoke a pack a week but uses vapor device as well. Current gender identity: male Do you feel safe at home: Yes Do you feel safe in your relationship?: Yes Exam Const General: cooperative Orientation: alert, awake and oriented x3 Limitations: mental status not altered [facility] Head: normal to inspection, normocephalic and atraumatic Ears: hearing grossly normal bilaterally, normal mastoids bilaterally and no periauricular adenopathy General nose exam: external nose normal Mouth: oropharynx normal, no drooling, no muffled voice, normal tongue and no trismus Teeth and gingiva: caries, poor dentition and other (Severe decay #14-15 with erythema surrounding the base of the tooth) Throat: posterior oropharynx normal, tonsils normal and uvula midline Eyes General: appearance normal, both eyes and all related structures Pupils: PERRL Neck Neck: normal visual inspection, full ROM, no lymphadenopathy, no meningeal signs, trachea midline, supple, no anterior neck swelling and no midline deformity Resp Effort & Inspection: normal respiratory effort and able to speak in complete sentences Course Vital Signs Vital signs: Vital Signs Temperature 36.8 C 07/16/21 20:42 Pulse 67 07/16/21 20:42 Respiratory Rate 13 07/16/21 20:42 Blood Pressure 169/88 H 07/16/21 20:42 Pulse Oximetry 100 07/16/21 20:42 Temperature 36.8 C 07/16/21 20:42 Pulse 67 07/16/21 20:42 Respiratory Rate 13 07/16/21 20:42 Respiratory Effort 07/16/21 20:45 Blood Pressure 169/88 H 07/16/21 20:42 Blood Pressure Position Sitting 07/16/21 20:42 Pulse Oximetry 100 07/16/21 20:42 Oxygen Delivery Method Room Air 07/16/21 20:42 Oxygen Flow Rate 0 07/16/21 20:42
[2021-07-16] MEDS: Amoxicillin 875/Clav. 125 TAB PO (21:34)
== END 2021-07-16 21:38 | disposition home or self-care (01) ==
PROVIDERS: Emergency Provider Nurse Practitioner Family
DX: K04.7 Periapical abscess without sinus (principal)
CPT/HCPCS: 99283

== ENCOUNTER 2021-11-28 08:05 | Emergency (ER) | payer SELFPAY ==
[2021-11-28 08:25] VITALS: BP 145/78; PULSE 71; RESP 16; TEMP 36.8; O2SAT 100
[2021-11-28] MEDS: Benzocaine 20% Gel 30 GM JAR MM (09:00)
--- NOTE | 2021-11-28 13:47 | W.ED.GENAD ---
Discharge Plan Disposition Patient Disposition: HOME Condition: Stable Discharge Details Clinical Impression: Abscess, dental Primary Care Provider: None,None ED Provider: Jeanna Weiss Home Meds and New Rx's Prescriptions: New penicillin V potassium 500 mg tablet 500 mg PO QID Qty: 40 0RF Discharge Instructions Instructions: Dental Abscess (ED) Additional Instructions: take antibiotics as prescribed motrin/tylenol for pain stay away from extremes in temperature and hard foods follow-up with dentist, list included return with new or worsening complaints Discharge Data Discharge Date/Time-TO BE ENTERED AT DEPARTURE: 11/28/21 09:24 Medical Decision Making Patient appears well He tolerated nerve block without incident He is placed on antibiotics for home and given a dental referral list No evidence of Jorge's angina Medical Records Medical records reviewed: Yes I reviewed the patient's medical records. HPI General Date/Time Provider Initiated Documentation: 11/28/21 08:38. HPI Narrative: This 31-year-old male presents with report of right upper dental pain. Denies any chest pain or shortness of breath. Denies any dizziness or weakness. Denies any difficulty swallowing. States his symptoms started yesterday. Reports facial swelling today. Otherwise reportedly healthy. Related Data Home Medications Medication Instructions Recorded Confirmed penicillin V potassium 500 mg 500 mg PO QID #40 tabs 11/28/21 tablet Previous Rx's Medication Instructions Recorded penicillin V potassium 500 mg 500 mg PO QID #40 tabs 11/28/21 tablet Allergies Allergy/AdvReac Type Severity Reaction Status Date / Time nickel Allergy Mild Skin Rash Verified 07/16/21 20:47 General Stated Complaint: DentalOral JOSE: 4 Review of Systems Narrative: Review of systems obtained x3 and negative aside from indication in HPI PFSH All Active Problems (Updated 11/28/21 @ 09:00 by BERE Marsh) Abscess, dental (Acute) Nicotine abuse (Acute) Acute medial meniscus tear of left knee (Acute 05/27/20) Laceration of right index finger (Acute 09/29/18) Medical History Left ACL tear (05/27/20) Social History Smoking/Tobacco Use Status: Current every day Tobacco Type: e-cigarettes Smoking risk assessment performed?: Yes Alcohol Intake: current Alcohol Intake frequency: holidays/special occasions only Drug use: Daily Substance use type: marijuana Details: drink on the weekends and smoke a pack a week but uses vapor device as well. Current gender identity: male Do you feel safe at home: Yes Do you feel safe in your relationship?: Yes Exam Const General: cooperative, comfortable and no acute distress [facility] Face images: 1. Swelling noted Teeth image: 1. Discoloration noted, no drainable abscess collection, no evidence of Jorge's angina, no trismus Resp Effort & Inspection: normal respiratory effort Cardio Rate: regular rate Course Vital Signs Vital signs: Vital Signs Temperature 36.8 C 11/28/21 08:25 Pulse 71 11/28/21 08:25 Respiratory Rate 16 11/28/21 08:25 Blood Pressure 145/78 H 11/28/21 08:25 Pulse Oximetry 100 11/28/21 08:25 Temperature 36.8 C 11/28/21 08:25 Temperature Source Oral 11/28/21 08:25 Pulse 71 11/28/21 08:25 Respiratory Rate 16 11/28/21 08:25 Respiratory Effort Non-Labored 11/28/21 09:04 Blood Pressure 145/78 H 11/28/21 08:25 Blood Pressure Position Sitting 11/28/21 08:25 Pulse Oximetry 100 11/28/21 08:25 Oxygen Delivery Method Room Air 11/28/21 08:25 Oxygen Flow Rate 0 11/28/21 08:25 Pain Level 10 11/28/21 08:25 Procedures Nerve Block Nerve Block 1: Time out performed: Yes Local Anesthetic: Bupivicaine 0.5% Amount of anesthesia used (mL): 2 Nerve Blocks: other Intraoral Nerve Block: other (anterior superior) Procedure Successful: Yes Patient Tolerated Procedure: no complications Complications: none
== END 2021-11-28 09:24 | disposition home or self-care (01) ==
PROVIDERS: Emergency Provider Physician Assistant
DX: K04.7 Periapical abscess without sinus (principal); F17.290 Nicotine dependence, other tobacco product, uncomplicated
CPT/HCPCS: 64400; 99283

== ENCOUNTER 2021-12-29 15:34 | Emergency (ER) | payer SELFPAY ==
[2021-12-29 15:42] VITALS: BP 152/91; PULSE 83; RESP 18; TEMP 37.1; O2SAT 100
--- NOTE | 2021-12-29 17:01 | ED.GENADUL_ITS ---
Discharge Plan Disposition Patient Disposition: HOME Condition: Stable Discharge Details Clinical Impression: URI (upper respiratory infection) Primary Care Provider: None,None ED Provider: Henrry Caputo Home Meds and New Rx's Prescriptions: No Action penicillin V potassium 500 mg tablet 500 mg PO QID Qty: 40 0RF Discharge Instructions Instructions: Upper Respiratory Infection (ED) Additional Instructions: You may continue to use [id number] medications and specifically ibuprofen as this may help with your symptoms. If you develop any new or worsening symptoms or not seeing signs of improvement by Tuesday please return to the emergency department or urgent care for reassessment and reconsideration of antibiotics. At this time all of your tests are negative and so I suspect viral illness but we will contact you when your throat culture has returned. Referrals: Primary Care Provider [Outside] - 1 week Discharge Data Discharge Date/Time-TO BE ENTERED AT DEPARTURE: 12/29/21 17:11 Medical Decision Making Patient presenting to the emergency department for chief complaint of cold symptoms. Patient reports yesterday he started with sore throat, nasal congestion, cough and subjective chills but states he has been working outside. Patient denies any fever, difficulty breathing, difficulty swallowing. Did state he noted white spots to his right tonsil yesterday and started feeling some discomfort today. Physical exam shows audible nasal congestion, tonsillary erythema hypertrophy and exudate more on the right than the left, no severe lymphadenopathy noted, exam consistent with Pharyngitis. 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 Pt non toxic and stable. Rapid strep is negative along with COVID and flu. Given that patient has other viral symptoms I feel more than likely this is viral etiology and that we can wait for send out strep test before starting antibiotics. Patient was encouraged to use ibuprofen for further discomfort and monitor symptoms along with return and follow-up precautions closely discussed. After discussion of diagnosis and plan of care patient has no further needs, questions, or concerns and states clear understanding to return to the emergency department for any worsening symptoms. This documentation was generated using [employer] system, please disregard any oddities of phrase or misspellings. This documentation was generated using [employer] system, please disregard any oddities of phrase or misspellings. HPI General Mode of arrival: ambulatory . Date/Time Provider Initiated Documentation: 12/29/21 16:22 . Limitations to Documentation: no limitations . Information obtained by: patient and RN notes reviewed . History of Present Illness 31 year old M presents to the emergency department with the chief complaint of Sore throat, nasal congestion, cough, described as moderate, with intensity rated at 5. Quality is described as aching, and is localized to the mouth (Sore throat). Patient reports no radiation. Patient started experiencing this day(s) (1) and it has been constant. No relieving factors improve symptom(s), No exacerbating factors reported . Patient did receive the following treatments prior to arrival, none Related Data Home Medications Medication Instructions Recorded Confirmed penicillin V potassium 500 mg 500 mg PO QID #40 tabs 11/28/21 tablet Previous Rx's Medication Instructions Recorded penicillin V potassium 500 mg 500 mg PO QID #40 tabs 11/28/21 tablet Allergies Allergy/AdvReac Type Severity Reaction Status Date / Time nickel Allergy Mild Skin Rash Verified 07/16/21 20:47 General Stated Complaint: Sorethroat JOSE: 4 Review of Systems Constitutional Constitutional: Denies body ache(s), Reports chills, Denies fever(s), Denies headache(s) and Reports malaise Eyes Eyes: Denies eye discharge ENT Ears, Nose, Mouth, and Throat: Reports as per HPI, Denies ear discharge, Denies otalgia, Denies headache(s), Reports nasal congestion, Reports nasal discharge, Denies neck pain, Reports sore throat and Denies throat swelling Cardiovascular Cardiovascular: Denies chest pain and Denies dyspnea Respiratory Respiratory: Reports cough and Denies dyspnea Musculoskeletal Musculoskeletal: Denies joint swelling and Denies neck pain Integumentary/Breasts Skin/Breast: Denies rash Neurologic Neurologic: Denies headache(s) Allergic/Immunologic Allergic/Immunologic: Denies throat swelling PFSH All Active Problems (Updated 12/29/21 @ 17:07 by Henrry Caputo NP) URI (upper respiratory infection) (Acute) Nicotine abuse (Acute) Acute medial meniscus tear of left knee (Acute 05/27/20) Laceration of right index finger (Acute 09/29/18) Medical History Left ACL tear (05/27/20) Social History Smoking/Tobacco Use Status: Current every day Tobacco Type: e-cigarettes Smoking risk assessment performed?: Yes Alcohol Intake: current Alcohol Intake frequency: holidays/special occasions only Drug use: Daily Substance use type: marijuana Details: drink on the weekends and smoke a pack a week but uses vapor device as well. Current gender identity: male Do you feel safe at home: Yes Do you feel safe in your relationship?: Yes Exam Const General: cooperative, comfortable and no acute distress Orientation: alert and awake HENMT Head: normal to inspection, normocephalic and atraumatic Ears: hearing grossly normal bilaterally and TM's normal bilaterally General nose exam: external nose normal Face and sinus: no erythema Mouth: oral mucosae normal, no drooling, no muffled voice and no trismus Throat: abnormal tonsil on the right exudates and bilaterally erythema and hypertrophy, posterior oropharynx abnormal erythema, uvula not displaced and no uvular edema Neck Neck: normal visual inspection, full ROM, no lymphadenopathy, no meningeal signs, trachea midline and supple Resp Effort & Inspection: normal respiratory effort, able to speak in complete sentences and cough Quality of cough: dry Auscultation: clear to auscultation bilaterally Cardio Rate: regular rate Rhythm: regular rhythm Heart Sounds: S1 normal, S2 normal, normal S1 and S2, no click, no gallops, no murmurs and no rubs Skin General skin exam: no rashes or lesions noted and dry skin (warm) Neuro General: patient alert, patient awake, patient oriented x3, gait normal and moves all extremities Cognition: normal cognition Speech: speech normal Course Vital Signs Vital signs: Vital Signs Temperature 37.1 C 12/29/21 15:42 Pulse 83 12/29/21 15:42 Respiratory Rate 18 12/29/21 15:42 Blood Pressure 152/91 H 12/29/21 15:42 Pulse Oximetry 100 12/29/21 15:42 Temperature 37.1 C 12/29/21 15:42 Temperature Source Tympanic 12/29/21 15:42 Pulse 83 12/29/21 15:42 Respiratory Rate 18 12/29/21 15:42 Respiratory Effort 12/29/21 15:45 Blood Pressure 152/91 H 12/29/21 15:42 Blood Pressure Position Sitting 12/29/21 15:42 Pulse Oximetry 100 12/29/21 15:42 Oxygen Delivery Method Room Air 12/29/21 15:42 Oxygen Flow Rate 0 12/29/21 15:42 Pain Level 6 12/29/21 15:42 Lab/Test Results Lab/Test Results: 12/29/21 15:48 Tonsil - Right Group A Streptococcus Culture - Pending POC Strep Test-DANIEL(Rapid) Start: 12/29/21 15:58 Freq: .Rapid Strep Test Status: Active Protocol: Document 12/29/21 16:25 LAILA (Rec: 12/29/21 16:26 LAILA [id number]) Strep test-DANIEL(Rapid)-POC POC-Strep test-DANIEL (Rapid) Negative POC-Strep test-DANIEL (Rapid) Negative
== END 2021-12-29 17:11 | disposition home or self-care (01) ==
PROVIDERS: Emergency Provider Nurse Practitioner Family
DX: J06.9 Acute upper respiratory infection, unspecified (principal)
CPT/HCPCS: 87880; 99282; 87081

== ENCOUNTER 2022-12-31 12:01 | Emergency (ER) | payer SELFPAY ==
[2022-12-31 12:08] VITALS: BP 150/82; PULSE 79; RESP 18; TEMP 37; O2SAT 100
--- NOTE | 2022-12-31 12:42 | W.ED.GENAD ---
Discharge Plan Disposition Patient Disposition: Home Condition: Stable Discharge Details Clinical Impression: Laceration of finger of right hand Primary Care Provider: None,None ED Provider: Robin Dozier Home Meds and New Rx's Prescriptions: Continued penicillin V potassium 500 mg tablet 500 mg PO QID Qty: 40 0RF Discharge Instructions Instructions: Finger Laceration (ED) Additional Instructions: You were seen in the emergency department for the 2 small lacerations of your left middle and pinky fingers. These were repaired by Steri-Strips and glue per your preference, if they continue to bleed and only have about 24 hours before stitches should be warranted, after this point stitches should not be placed you were sent home with ample supply of Steri-Strips and skin glue to reapply any bandages as needed. If you continue to bleed please elevate and apply significant pressure for at least 5 solid minutes. Please return to the emergency department for any signs of infection. Please refrain from submerging her hands in water for the first 24 to 48 hours. Referrals: [facility] [Provider Group] [facility] [Provider Group] Medical Decision Making This dictation utilizes fuzgy-gc-ryxf dictation software and may contain unedited grammatical errors. 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 Onset and characteristics include just prior to arrival, bleeding controlled by presentation. Patient has relevant history of noncontributory. Family and social history: Noncontributory. Pertinent exam findings / vital signs include 2 small subhalf centimeters superficial lacerations to the middle and pinky finger of the left hand, no active bleeding, no tendon involvement, neurovascular intact diffusely. Differential / pathologies of concern include laceration, NOT tendon involvement, NOT NV compromise. Diagnostic studies of: -none. Interventions of: -steri-strip/DermaBond repair. 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 He was provided supplies to replace the bandages if necessary, he asserted that his Tdap is up-to-date and he is a reliable independent historian. Findings not consistent with NV Compromise. Disposition of Laceration of Finger of Left Hand. Assessment/Plan: Lacerations repaired, recommend return for signs of infection. Patient verbalized understanding of the plan and return to ED criteria and engaged in shared decision making. Medical Records Medical records reviewed: Yes I reviewed the patient's medical records. HPI General Date/Time Provider Initiated Documentation: 12/31/22 12:12. HPI Narrative: 32 year-old male presents to ED today by POV/ambulating with his friend with a chief complaint of minor lacerations to his L hand, 3rd and 5th fingers at DIP joints <.5cm each with onset about an hour prior to arrival. Quality described as continued mild bleeding, no radiation to numbness/tingling, ROM deficit, strength deficit, swelling, FB sensation. Severity is described as mild/10. Palliating factors include direct pressure but subtherapeutic elevation. Provoking factors include nothing specific. Events leading up to the incident/Associated Symptoms: Patient is R-hand dominant. Patient not anticoagulated. Related Data Home Medications Medication Instructions Recorded Confirmed penicillin V potassium 500 mg 500 mg PO QID #40 tabs 11/28/21 tablet Previous Rx's Medication Instructions Recorded penicillin V potassium 500 mg 500 mg PO QID #40 tabs 11/28/21 tablet Allergies Allergy/AdvReac Type Severity Reaction Status Date / Time nickel Allergy Mild Skin Rash Verified 07/16/21 20:47 General Stated Complaint: Laceration JOSE: 4 Review of Systems All systems reviewed & are unremarkable except as noted in HPI and below PFSH All Active Problems (Updated 12/31/22 @ 12:43 by BERE Escobar) Laceration of finger of right hand (Acute) Nicotine abuse (Acute) Acute medial meniscus tear of left knee (Acute 05/27/20) Laceration of right index finger (Acute 09/29/18) Medical History Left ACL tear (05/27/20) Social History Smoking/Tobacco Use Status: Current every day Tobacco Type: e-cigarettes Smoking risk assessment performed?: Yes Alcohol Intake: current Alcohol Intake frequency: holidays/special occasions only Drug use: Daily Substance use type: marijuana Details: drink on the weekends and smoke a pack a week but uses vapor device as well. Current gender identity: male Do you feel safe at home: Yes Do you feel safe in your relationship?: Yes Exam Narrative Exam Narrative: GENERAL APPEARANCE: Well-nourished, non-toxic, awake and alert, atraumatic, no acute distress. SKIN: Warm, pink, dry, two small <0.5cm superficial lacerations to L 3rd and 5th finger symmetrically at the DIP palmar aspect, no active bleeding, no tendon visualized, no erythema or swelling, no gross contamination. HEAD: Normocephalic, atraumatic, normal hair distribution for gender/age. EYES: Pupils PERRLA, EOMs intact without nystagmus, normal conjunctiva, no exudates on lids/lashes. ENT: Nares patent, no circumoral cyanosis, no facial swelling NECK: Supple, trachea midline, painless cervical ROM. LUNGS/CHEST: Non-labored respirations, normal A/P diameter, symmetrical expansion, no chest wall deformity HEART (CV/PV): Regular rate, L radial pulse 2+, no peripheral edema, no JVD. ABDOMEN: Soft, non-distended, no guarding. MSK: Normal ROM, no swelling/deformity to bilateral UEs or LEs, moving all extremities without weakness, no cyanosis, spine midline without tenderness, normal curvature. NEURO: Mental Status AAOx4 - alert to person, place, time, events No facial droop, no forehead involvement. Motor: No focal weakness - strength 5/5 in bilateral UEs and LEs, proximal and distal, symmetric. Sensory: sensation intact to light touch globally. Gait normal: patient ambulated without ataxia into ED room. PSYCH: euthymic, cooperative, pleasant, appropriate speech Course Vital Signs Vital signs: Vital Signs Temperature 37.0 C 12/31/22 12:08 Pulse 79 12/31/22 12:08 Respiratory Rate 18 12/31/22 12:08 Blood Pressure 150/82 H 12/31/22 12:08 Pulse Oximetry 100 12/31/22 12:08 Temperature 37.0 C 12/31/22 12:08 Temperature Source Oral 12/31/22 12:08 Pulse 79 12/31/22 12:08 Respiratory Rate 18 12/31/22 12:08 Respiratory Effort Normal, Non-Labored 12/31/22 12:26 Blood Pressure 150/82 H 12/31/22 12:08 Blood Pressure Position Sitting 12/31/22 12:08 Pulse Oximetry 100 12/31/22 12:08 Oxygen Delivery Method Room Air 12/31/22 12:08 Oxygen Flow Rate 0 12/31/22 12:08 Pain Level 2 12/31/22 12:08 Procedures Laceration Laceration 1: Site: hand Side (If applicable): left Size (cm): 0.5 Description: linear and clean Depth: simple, single layer Pre-repair: wound explored and irrigated extensively Skin layer closed with: other (Steri-strips and DermaBond)
== END 2022-12-31 12:51 | disposition home or self-care (01) ==
PROVIDERS: Emergency Provider Physician Assistant
DX: M79.642 Pain in left hand (principal); S61.217A Laceration without foreign body of left little finger without damage to nail, initial encounter; S61.213A Laceration without foreign body of left middle finger without damage to nail, initial encounter
CPT/HCPCS: 99282

== ENCOUNTER 2024-02-27 14:16 | Emergency (ER) | payer SELFPAY ==
[2024-02-27 14:19] VITALS: BP 137/80; PULSE 67; RESP 16; TEMP 36.5; O2SAT 98
--- NOTE | 2024-02-27 14:30 | DI.CT_ITS ---
Exam(s) CT BRAIN NECK CTA EXAM: CT BRAIN NECK CTA CLINICAL HISTORY: LWK 2330, new L. side neck numbness. TECHNIQUE: Imaging Protocol: Axial CT angiography was performed with multi-slice acquisition and mu lti-planar and/or 3D reconstructions. CONTRAST MATERIAL: Intravenous: Omnipaque 350 Contrast volume:70 mL COMPARISON: CT HEAD AND CSPINE W/O CONTRAST from 09/06/2017 FINDINGS: CTA Neck W: Aortic arch anatomy: The aortic arch anatomy is conventional and there is no significant stenosis at the origin of the great vessels off of the aortic arch. No intimal flap evident. Anterior circulation: Both common carotid arteries ascend with normal luminal diameters. At the level the carotid bulbs and proximal internal carotid arteries there is minimal plaque without hemodynamically significant stenosis evident. Posterior circulation: Both vertebral arteries originate in conventional fashion off of the subclavian arteries and there is no obvious stenosis at the origin of the vertebral arteries. Both vertebral arteries exhibit normal luminal diameters within the foramen transversarium. Diameter both vertebral arteries is symmetrical. No evidence of significant stenosis nor dissection Both vertebral arteries contribute to the formation of the basilar artery at the skull base. CTA Brain W: Anterior circulation: Both internal carotid arteries are patent in the skull base-carotid canals as well as within the cave rnous sinuses. The supraclinoid aspects of the ICAs are patent. Both A1 segments are patent as are the anterior cer ebral arteries and there is no evidence of aneurysm at the level of the anterior communicating artery . There is some tortuosity of vessels at this level but no aneurysm evident. Both middle cerebral arteries are patent with no evidence of significant stenosis nor intraluminal th rombus. There also no aneurysms of these vessels. Posterior circulation: The basilar artery is patent with no significant stenosis.. Distally it gives off patent bilateral s uperior cerebellar arteries. Above this level the basilar artery terminates as patent bilateral posterior cerebral arteries. There is no evidence of aneurysm at the tip of the basilar artery nor elsewhere in the hnrfen-by-[id number] is. CT BRAIN: There are no skull fractures. There is evidence of prior sinus surgery. There is significant mucosa l thickening in the partially visualized paranasal sinuses including the frontal sinuses. There is no evidence of intracranial hemorrhage, mass effect, or shift of midline structures. There are no extra-axial fluid collections. Ventricles are not enlarged or shifted. There are no ring enh ancing lesions in the brain and no abnormal meningeal enhancement. Incidentally noted is chronic disc space narrowing at C4-5 and left-sided Luschka joint osteophytes a t this level. Also milder disc space narrowing at C5-6 level. IMPRESSION: 1. Patent carotid arteries in the neck. No hemodynamically significant stenosis. 2. Patent vertebral arteries. No thrombosis nor dissection. 3. Patent intracranial arteries. Also no aneurysms nor evidence of vascular malformation. 4. No ring-enhancing lesions nor other significant findings in the brain. 5. Paranasal sinus disease with evidence of prior interval endoscopic sinus surgery when compared to brain CT scan images of 2018. 6. Incidentally noted is significant disc space narrowing in the cervical spine at C4-5 level as well as unilateral left-sided Luschka joint osteophytes at this level. Report called by myself to ER physician 02/27/2024 at 4:05 p.m. RADIATION DOSE DELIVERED: 2,159.25mGy.cm Total DLP DATA REPOSITORY: All CT scans at this facility are submitted to the National Radiology Data Registry (NRDR) Dose Index Registry (DIR) with the [employer] (ACR). RADIATION OPTIMIZATION: All CT scans at this facility use at least one of these dose optimization te chniques: automated exposure control; mA and/or kV adjustment per patient size (includes targeted exa ms where dose is matched to clinical indication); or iterative reconstruction.
--- NOTE | 2024-02-27 14:30 | RT.EKG_ITS ---
APPROVED REPORT Exam: Resting ECG Reason for Exam: New numbness, hx arrythmia? Patient Location: E HR:70 bpm ECG Measurements Heart Rate 70 AXIS VA 161 P 68 QRSd 98 QRS 85 QT 374 T 68 QTc 403 Conclusion Sinus rhythm, rate 70 No interval abnormalities Benign early repol pattern No STEMI
--- NOTE | 2024-02-27 14:48 | ED.GENADUL_ITS ---
Discharge Plan Disposition Patient Disposition: Home Condition: Stable Discharge Details Clinical Impression: Numbness and tingling of left side of face, Cervical disc disorder at C4-C5 level with radiculopathy, Disease of nasal sinus Primary Care Provider: None,None ED Provider: Ana Luna Home Meds and New Rx's Prescriptions: No Action No Known Home Meds Discharge Instructions Instructions: Paresthesia (DC) Additional Instructions: You were seen in the emergency department today for evaluation of numbness of the left side of your face and neck. In our department you had a full physical examination performed, had laboratory studies that were largely reassuring and had a CT scan that showed no sign of stroke or blood vessel abnormalities. You do have some dcnw-tpr-tare changes in the left side of your neck that could be compressing the nerves and causing this numbness. It is also possible that this is due to another cause, such as viral or tickborne infection, multiple sclerosis, etc. You have been referred to establish with a primary care provider, and I would strongly recommend that you have an MRI with and without contrast of your brain and neck to ensure that there is nothing else going on to explain your symptoms. I have sent a message to your primary care provider to mention this. You should return to the emergency department if you have change or worsening of your symptoms, develop a fever, rash, changes in vision or hearing, or any other symptoms that cause you concern. Thank you for allowing us to be part of your care. HPI General Mode of arrival: ambulatory . Date/Time Provider Initiated Documentation: 02/27/24 14:25 . Limitations to Documentation: no limitations . Information obtained by: patient, family and old records reviewed . HPI Narrative: HPI: This is a 33-year-old male patient presenting for evaluation of left-sided neck numbness. The patient reports that he was in his normal state of health last night when he went to bed at 2330. When he awoke at 05 30, he could not feel the left side of his from his earlobe down to his collarbone. If he pulls on his orr he can feel some sensation, but states that this sensory loss has persisted throughout the day. It is not associated with any pain, weakness, or overlying skin changes. He has never experienced numbness like this before. He states that he went to work today and when his symptoms did not improve sought care at the recommendation of his friends and family. 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 He does not crack his neck and has not utilized a chiropractor. No recent fevers, illnesses, and he has not noted any rashes. He does not have a history of oral herpes or cold sores, had the chickenpox as a child, has not had any known recent tick bites. He denies changes in swallowing or speaking, has not had any vision changes or difficulty with his hearing. No personal history for bleeding or clotting disorders. Exam: Gen: Awake and alert, in no apparent distress HEENT: Non-icteric sclera, pupils equal and reactive bilaterally at 3 mm, EOMs are full and without nystagmus. No diplopia or visual acuity changes. Bilateral TMs are clear, no vesicular lesions or other rashes appreciated. Neck: Supple Lungs: No apparent respiratory distress, normal respiratory effort. CV: Appears well perfused, strong distal pulses Abdomen: Non-distended MSK: Moves 4 extremities without apparent limitation in ROM Skin: Visualized skin without rashes, cyanosis. Neuro: Cranial nerves II through XII intact and symmetrical bilaterally with the exception of his sensory exam, which reveals decreased sensation in the V3 distribution, and down into the lateral left neck. He has preserved strength, no pronator drift, accurate targeting with [id number]-[id number]. Psych: Appropriate for situation. MDM: This is a 33-year-old male patient presenting for evaluation of left-sided face and neck numbness since he woke up this morning at 530. Last known well 11:30 PM last night. Differential includes but is not limited to stroke, intracranial hemorrhage, vascular dissection, thrombosis, certainly considered viral infection such as Villarreal's palsy, Lyme disease, tickborne illness, herpes zoster. Considered cervical radiculopathy and nerve root compression, though I would certainly expect some level of pain to be present with this etiology. Consider demyelinating disorders including MS. I had a shared decision-making conversation with the patient, and we will proceed with laboratory studies to include CBC, CMP, TSH, INR, magnesium, and tick panel. I will obtain a CTA head and neck to characterize any abnormalities which might account for the patient's symptoms. The patient reports a history of reported arrhythmia when he was young, for which we will obtain an EKG. ED Course: EKG shows normal sinus rhythm without evidence of ischemia or arrhythmia. I independently interpreted the laboratory studies, which show no significant leukocytosis, anemia, or thrombocytopenia. The chemistry panel is without evidence of electrolyte abnormality, kidney dysfunction, or liver injury. Very slightly elevated TSH and decreased free T4, though the patient is without overt clinical evidence or historical symptoms concerning for hypothyroidism. I dependently reviewed the patient's CTA head and neck and discussed the findings with the radiologist. He does have evidence of sinus disease, which has been present on priors, as well as C4/C5 disc disease with narrowing and osteophytes on the left side, and certainly cervical radiculopathy could be considered in this patient's constellation of symptoms. There is no evidence of stroke, large vessel occlusion, or aneurysm/dissection. Unfortunately, MRI is not available in the emergency department at this time of day, and I do not believe that the patient's symptoms are sufficiently disabling to the point where he would require transfer to an MRI capable center. I did refer this patient to primary care and recommended rapid follow-up and potential outpatient MRI with and without contrast to evaluate for nerve or demyelination abnormalities. Additionally, I recommended gentle stretching and avoidance of reinjury as well as gcdk-lsg-tgeraid medications as needed for symptoms of pain. At this time, the patient has had a full medical evaluation and is safe for discharge to home. They are hemodynamically stable, ambulatory, and tolerating PO. They are understanding of the follow-up plan and return precautions. They left our facility without incident. Ana Luna MD Related Data Home Medications ?Medication ?Instructions ?Recorded ?Confirmed Unknown [No Known Home Meds] 02/27/24 02/27/24 Allergies Allergy/AdvReac Type Severity Reaction Status Date / Time nickel Allergy Mild Skin Rash Verified 02/27/24 14:19 General Stated Complaint: Nk/Back Pain JOSE: 3 Course Vital Signs Vital signs: Vital Signs Temperature 36.5 C 02/27/24 14:19 Pulse 67 02/27/24 14:19 Respiratory Rate 16 02/27/24 14:19 Blood Pressure 137/80 02/27/24 14:19 Pulse Oximetry 98 02/27/24 14:19 Temperature 36.5 C 02/27/24 14:19 Temperature Source Oral 02/27/24 14:19 Pulse 67 02/27/24 14:19 Respiratory Rate 16 02/27/24 14:19 Blood Pressure 137/80 02/27/24 14:19 Blood Pressure Position Sitting 02/27/24 14:19 Pulse Oximetry 98 02/27/24 14:19 Oxygen Delivery Method Room Air 02/27/24 14:19 Oxygen Flow Rate 0 02/27/24 14:19 Pain Level 0 02/27/24 14:19 Medical Decision Making Quality:SDOH Health Related Social Needs: No Data to Display PFSH All Active Problems (Updated 02/27/24 @ 16:28 by Ana Luna MD) Disease of nasal sinus (Acute) Cervical disc disorder at C4-C5 level with radiculopathy (Acute) Numbness and tingling of left side of face (Acute) Nicotine abuse (Acute) Acute medial meniscus tear of left knee (Acute 05/27/20) Laceration of right index finger (Acute 09/29/18) Medical History Left ACL tear (05/27/20) Social History Smoking/Tobacco Use Status: Current every day Tobacco Type: e-cigarettes Smoking risk assessment performed?: Yes Alcohol Intake: current Alcohol Intake frequency: holidays/special occasions only Drug use: Daily Substance use type: marijuana Details: drink on the weekends and smoke a pack a week but uses vapor device as well. Housing: house Current gender identity: male Do you feel safe at home: Yes Do you feel safe in your relationship?: Yes
[2024-02-27 15:15] LABS: Abs Immature Grans 0.01 10^3/uL (0.0-0.06); Absolute Basophil Count 0.05 10^3/uL (0.0-0.2); Absolute Eosinophil Count 0.15 10^3/uL (0.0-0.7); Absolute Lymphocyte Count 1.65 10^3/uL (1.2-3.4); Basophils % 0.9 %; Eosinophils % 2.8 %; HCT 43.9 % (40.0-50.0); HGB 14.5 g/dL (13.5-17.5); Immature Grans % 0.2 %; Lymphocytes % 30.8 %; MCH 30.5 pg (27.0-33.0); MCV 92 fL (80-95); Monocytes % 7.5 %; Neutrophils % 57.8 %; Platelet Count 181 10^3/uL (130-400); RBC 4.76 10^6/uL (4.36-5.78); RDW 12.2 % (11.8-14.1); RDW-SD 41.8 fL; WBC 5.36 10^3/uL (4.4-10.8)
[2024-02-27 15:27] LABS: INR 1.1 (0.9-1.1)
[2024-02-27 15:38] LABS: ALT 25 U/L (16-63); AST 19 U/L (15-37); Albumin 4.1 g/dL (3.4-5.0); Alkaline Phosphatase 67 U/L (46-116); Anion Gap 3.2 mmol/L (3-11); BUN 10 mg/dL (7-18); Bilirubin, Total 0.43 mg/dL (0.2-1.0); CO2 35.8 mmol/L (21.0-32.0); Calcium 8.8 mg/dL (8.5-10.1); Chloride 104 mmol/L (98-107); Estimated GFR 101.28 (mL/min/1.73m2); Glucose 101 mg/dL (74-106); Magnesium 1.7 mg/dL (1.8-2.4); Potassium 3.6 mmol/L (3.5-5.1); Sodium 143 mmol/L (136-145); TSH (W/Ref FT4) 3.82 uIU/mL (0.36-3.74)
[2024-02-27] MEDS: Normal Saline - Diluent 50 ML VIAL IJ (15:38)
[2024-02-27] MEDS: Omnipaque 350 MG/ML 100 ML BTL IJ (15:39)
[2024-02-27 16:02] LABS: FREE T4 0.67 ng/dL (0.76-1.46)
[2024-02-27 16:37] VITALS: BP 118/78; PULSE 72; RESP 18; O2SAT 95
[2024-02-28 10:48] LABS: Lyme Ab w Rflx to Lyme Confirm Negative (Negative)
[2024-03-01 16:29] LABS: Anaplasma phagocytophilum Negative (Negative); B. miyamotoi PCR Negative (Negative); Babesia divergens/MO-1 Negative (Negative); Babesia duncani Negative (Negative); Babesia microti Negative (Negative); Ehrlichia chaffeensis Negative (Negative); Ehrlichia ewingii/canis Negative (Negative); Ehrlichia muris eauclairensis Negative (Negative)
== END 2024-02-27 16:39 | disposition home or self-care (01) ==
PROVIDERS: Emergency Provider Emergency Medicine
DX: M50.121 Cervical disc disorder at C4-C5 level with radiculopathy (principal); J34.9 Unspecified disorder of nose and nasal sinuses; R20.2 Paresthesia of skin; F17.290 Nicotine dependence, other tobacco product, uncomplicated
CPT/HCPCS: 36415; 70496; 70498; 80053; 87798; 93005; 99285; 83735; 84439; 84443; 85025; 85610; 86618; 93010; 99284; J3490

== ENCOUNTER 2024-05-04 16:01 | Outpatient (REF) | payer OTHER, SELFPAY ==
[2024-05-04 21:55] LABS: TSH (W/Ref FT4) 2.12 uIU/mL (0.36-3.74)
== END 2024-05-04 16:02 | disposition home or self-care (01) ==
LOC: NCHCN 16:01
PROVIDERS: Visit Provider Nurse Practitioner Family
DX: E03.9 Hypothyroidism, unspecified (principal)
CPT/HCPCS: 84443

== ENCOUNTER 2024-09-07 15:19 | Outpatient (REF) | payer OTHER, SELFPAY ==
[2024-09-10 11:51] LABS: Chlamydia Result Negative (Negative); GC Result Negative (Negative)
== END 2024-09-07 15:20 | disposition home or self-care (01) ==
LOC: NCHCN 15:19
PROVIDERS: PCP Nurse Practitioner Family; Visit Provider Nurse Practitioner Family
DX: Z11.3 Encounter for screening for infections with a predominantly sexual mode of transmission (principal)
CPT/HCPCS: 87491; 87591

== ENCOUNTER 2024-09-07 17:49 | Outpatient (REF) | payer OTHER, SELFPAY ==
[2024-09-07 21:19] LABS: Calculated LDL 112 mg/dL (<100); Cholesterol 194 mg/dL (<200); HDL Cholesterol 62 mg/dL (>or=40); Triglyceride 101 mg/dL (<150)
[2024-09-10 10:00] LABS: HIV-1/2 Ag & Ab Screen Negative (Negative)
[2024-09-10 10:25] LABS: Hepatitis C Ab w Rflx HCV PCR Negative (Negative)
[2024-09-10 11:47] LABS: Syphilis Serology (RPR) Negative (Negative)
== END 2024-09-07 17:50 | disposition home or self-care (01) ==
LOC: NCHCN 17:49
PROVIDERS: PCP Nurse Practitioner Family; Visit Provider Nurse Practitioner Family
DX: Z00.00 Encounter for general adult medical examination without abnormal findings (principal); Z11.3 Encounter for screening for infections with a predominantly sexual mode of transmission
CPT/HCPCS: 80061; 86803; 87389; 86592

== ENCOUNTER 2024-10-18 03:05 | Outpatient (CLI) | payer OTHER, SELFPAY ==
--- NOTE | 2024-10-18 06:00 | DI.MRI_ITS ---
Exam(s) MR BRAIN ORBIT FACE NECK WO/W EXAM: MR BRAIN ORBIT FACE NECK WO/W CLINICAL HISTORY: R jaw numbness,r20.0 TECHNIQUE: Multiplanar multisequence MRI of the brain was performed 1.5 bebe unit with both pre and post contrast infused sequences. Contrast injected was 17 mL Dotarem. COMPARISON: No exams were available for comparison FINDINGS: BRAIN: There is no evidence of intracranial hemorrhage, mass effect, or shift of midline structures. There are no extra-axial fluid collections. The ventricles are not enlarged or shifted and there is no blood within the ventricular system nor within the basal cisterns. There is no significant signal abnormality in the cerebellar hemispheres nor within the zach, midbrain, and thalami nor within the walter and supra ventricular white matter. There is no evidence of demyelinating disease. No areas of restricted diffusion on DWI No microhemorrhages evident on SWI. There are no ring enhancing lesions in the brain and there is no abnormal meningeal enhancement, focal nor diffuse. Pituitary gland appears unremarkable. No findings in the suprasellar cistern. No deviation of the pituitary infundibulum. Optic chiasm appears unremarkable. There are no obvious abnormalities in the adjacent cavernous sinuses. Vascular flow voids appear unremarkable. No evidence of vascular occlusion or aneurysms nor evidence of vascular malformations in the brain. IAC's: Cerebellopontine angles are clear and there also no intra canalicular lesions in the IAC's. The 7th and 8th cranial nerves appear unremarkable bilaterally within the internal auditory canals. The trigeminal nerves appear symmetric has the extended anteriorly from the lateral aspect of the zach towardsMeckel's caves. There are no masses in Causing external compression upon the extra axial trigeminal nerves at this level. The oculomotor 3rd cranial nerves appear unremarkable within the interpeduncular fossa has aches and anteriorly towards the lateral thomson of the cavernous sinuses. There is again noted significant paranasal sinus disease with post inflammatory retention cysts in both maxillary sinuses as well as in the right frontal sinus and there is also opacification of ethmoidal air cells bilaterally. There is some circumferential mucosal thickening in the sphenoid sinuses. There are no mastoid effusions evident. ORBITS: There is no evidence of proptosis nor dysconjugate gaze The anterior and posterior chambers of the globes appear unremarkable.. The retrobulbar fat is unremarkable. Extraocular muscles are unremarkable. The optic nerves appear unremarkable as does the optic chiasm.: SOFT TISSUES: Lacrimal glands appear unremarkable. OTHER FINDINGS: There is significant mucosal disease in the oil air cells bilaterally but there does not appear to be dehiscence of the medial thomson of the orbits. NECK (Visualized): Nasopharynx: Appears unremarkable. Oropharynx: Appears unremarkable. No retropharyngeal findings. Yajaira dental and mandible: No obvious abnormality Basiocciput/clivus: Appears unremarkable IMPRESSION: 1. No significant intracranial findings 2. There is significant mucosal disease in the paranasal sinuses including multilevel post inflammatory retention cysts. These are in both maxillary sinuses as well as the right frontal sinus. There is also opacification of numerous ethmoidal air cells bilaterally. 3. No significant findings in the orbits DATA REPOSITORY:
[2024-10-18] MEDS: Gadoterate meglumine 20 ML SYRINGE IVP (09:20)
[2024-10-18] MEDS: Normal Saline Flush 10 ML SYR IJ (09:22)
== END 2024-10-18 03:25 ==
LOC: DI 03:05
PROVIDERS: PCP Nurse Practitioner Family; Visit Provider Psychiatry & Neurology Neurology
DX: R20.0 Anesthesia of skin (principal); J32.0 Chronic maxillary sinusitis
CPT/HCPCS: 70553; 70543